=== PATIENT | male | born 1975 | race Caucasian/White ===

== ENCOUNTER 2025-01-06 11:06 | Outpatient (CLI) | payer OTHER, SELFPAY ==
--- OUTSIDE RECORDS SUMMARY | 2025-01-06 12:06 | XMS_ITS ---
Author Organization [facility] Address [address] [facility] [address] [place] [address] Care Team Providers Care Entomology Teacher Name Role Phone Nader Miranda MD Primary Care Provider Ab Bernal MD, Rishi Vallejo [phone] REASON FOR VISIT med records Encounters Encounter Location Date Provider Diagnosis [facility] [address] [place] [address] 08/18/2023 Rishi Bernal MD PLAN OF TREATMENT No Information
--- OUTSIDE RECORDS SUMMARY | 2025-01-06 12:06 | XMS_ITS ---
Author Organization [facility] Address [address] [facility] [address], [place] [address] Care Team Providers Care Sidewalk Inspector Name Role Phone Nader Miranda MD Primary Care Provider Ab Bernal MD, Rishi Vallejo REASON FOR VISIT shoulder inj Encounters Encounter Location Date Provider Diagnosis [facility] [address] [place] [address] 07/30/2023 Rishi Bernal MD PLAN OF TREATMENT No Information
--- OUTSIDE RECORDS SUMMARY | 2025-01-06 12:06 | XMS_ITS | CONTINUITY OF CARE DOCUMENT ---
Author Name phani phani Address Unknown Organization [facility] Address [address] [place] [address] Phone [phone] Care Team Providers Care Enterprise Architect Manager Name Role Phone Rahat Alonzo MD Unavailable [phone] AMI WHALEN MD Unavailable [phone] AMI WHALEN MD Unavailable [phone] INSURANCE PROVIDERS Payer name Policy type / Coverage type [place] red democrat ID [facility] [id number] Other [id number] [facility] [id number]
--- OUTSIDE RECORDS SUMMARY | 2025-01-06 12:06 | XMS_ITS | Clinical Summary ---
Author Organization [facility] Address [address] [place] [address] Care Team Providers Care Laborer Electroplating Name Role Phone Nader Miranda MD Primary Care Provider Allergies No known active allergies Medications rosuvastatin (CRESTOR) 10 mg tabletIndication s:hyperlipidemia Take 1 tablet (10 mg total) by mouth nightly 1 Active zunlrykn-stcf-qe n-folic acid 18-0.4 mg tabletIndication s:Vitamin Deficiency Prevention Take 1 tablet by mouth nightly Active ascorbic acid, vitamin C, (Vitamin C) 125 mg tablet,chewable Take by mouth nightly Active Lactobacillus acidophilus (PROBIOTIC ACIDOPHILUS ORAL) Take by mouth nightly Active melatonin 10 mg tablet Take 1 tablet (10 mg total) by mouth nightly as needed Active inulin (FIBER GUMMIES ORAL) Take by mouth as needed Active fluticasone propionate (FLONASE) 50 mcg/actuation nasal spray Administer 1 spray into each nostril as needed for rhinitis Active cetirizine (ZyrTEC) 10 mg tablet Take 1 tablet (10 mg total) by mouth as needed for allergies Active ergocalciferol (VITAMIN D) 50,000 unit capsuleIndicatio ns:Vitamin D Deficiency Take 1 capsule (50,000 Units total) by mouth once a week TAKE 1 CAPSULE ONCE A WEEK FOR 12 WEEKS, THEN FOLLOW UP WITH YOUR PCP. 12 capsule 4 Active Active Problems Problem Noted Date Diagnosed Date Osteoarthritis of left hip, unspecified osteoart hritis type 09/27/2024 Primary osteoarthritis of left hip 08/22/2024 Disorder of prostate 05/11/2024 Dyspnea 01/14/2024 Gastroesophageal reflux disease 01/14/2024 Headache 01/14/2024 Lateral epicondylitis 01/14/2024 Pain in elbow 01/14/2024 Verruca plantaris 01/14/2024 Anterior to posterior tear o f superior glenoid labrum of right shoulder 10/06/2023 Subacromial impingement of right shoulder 2022 Biceps tendinitis of right upper extremity 09/24 Lesion of skin of face 04/08/2023 Pain in both feet 04/08/2023 Transient hypertension 04/08/2023 Medial epicondylitis 04/02/2022 COVID-19 12/18/2021 Hyperlipidemia 04/08/2021 Surgical follow-up care 11/13/2016 Encounters Date Type Department Care Team Description 01/03/2025 Orders Only [facility] [address] [place] [address] [place] [phone] Bora Chao MD Orthopedic aftercare (Primary Dx) 11/22/2024 Orders Only [facility] [address] [place] [address] 4 [address] [place] [phone] Bora Chao MD Left hip pain (Primary Dx) 11/21/2024 7:50 AM DIRECTOR OF REGULATORY AFFAIRS Telemedicine [facility] [address] [place] [address] 4 [address] [place] [phone] Bora Chao MD Follow-up examination following surgery (Primary Dx) 11/15/2024 12:34 PM DIRECTOR OF REGULATORY AFFAIRS - 11/15/2024 11:59 PM DIRECTOR OF REGULATORY AFFAIRS Hospital Encounter [facility] [address] [place] [address] Bora Chao MD Orthopedic aftercare Discharge Disposition: Discharge to home or self care 11/10/2024 Orders Only [facility] Bora Chao MD Right hip pain 11/01/2024 Orders Only [facility] [address] [place] [address] 4 [address] [place] [phone] Bora Chao MD Orthopedic aftercare (Primary Dx) 10/13/2024 Orders Only [facility] [address] [facility] [address] [place] [address] Bora Chao MD Right hip pain (Primary Dx) 10/13/2024 Orders Only [facility] [address] [facility] [address] [place] [address] Bora Chao MD from Last 3 Months Immunizations Immunization Administration Dates Next Due Sars-CoV-2, Unspecified 01/30/2021,01/03/2021 Surgical History Surgery Date Site/Laterality Comments SHOULDER ARTHROSCOPY W/ ROTATOR CUFF REPAIR 10/26/2019 - 10/25/2020 Right DEBRIDEMENT TENNIS ELBOW 10/26/2019 - 10/25/2020 Right golfer and tennis HIP SURGERY 10/26/2007 - 10/25/2008 Right reconstruction FLUORO GUIDED ASPIRATION OR INJECTION LARGE JOINT LEFT 04/01/2023 Left ELBOW SURGERY 10/26/2021 - 10/25/2022 Right bone spur HIP HARDWARE REMOVAL 10/26/2008 - 10/25/2009 Right WISDOM TOOTH EXTRACTION 10/26/1991 - 10/25/1992 SINUS SURGERY 10/26/1995 - 10/25/1996 BICEPS TENDON REPAIR FLUORO GUIDED ASPIRATION OR INJECTION LARGE JOINT BILATERAL 01/26/2024 Bilateral SHOULDER SURGERY FLUORO GUIDED ASPIRATION OR INJECTION LARGE JOINT BILATERAL 06/14/2024 Bilateral FLUORO GUIDED ASPIRATION OR INJECTION LARGE JOINT RIGHT 10/31/2024 Right Medical History Medical History Date Comments Arthritis Gastric reflux Migraines Obesity Motion sickness PONV (postoperative nausea and vomiting) PONV and shakes - does well with pre-treatment Family History Medical History Relation Name Comments Alcohol abuse Father Family history of alcoholism - (Added by TW Conv) Mental illness Father FH: mental il lness - (Added by TW Conv) Cancer Maternal Grandmother Family history of malignant neoplasm - (Added by TW Conv) Bleeding Disorder Paternal Grandmother Janna anand history of coagulation disorder - (Added by TW Conv) Diabetes Paternal Grandmother Family history of diabetes mellitus - (Added by TW Conv) Anesthesia problems Neg Hx Relation Name Status Comments Father Maternal Grandmother Paternal Grandmother Social History Tobacco Use Types Packs/Day Years Used Date Smoking Tobacco: Never Smokeless Tobacco: Never Tobacco Cessation:Counseling Given: Not Answered AUDIT-C Answer Date Recorded Q1: How often do you have a drink containing alcohol? Never 09/27/2024 Q2: How many drinks containi ng alcohol do you have on a typical day when you are drinking? Patient does not drink Q3: How often do you have si x or more drinks on one occasion? Never 09/27/2024 Personal Safety Answer Date Recorded Have you ever been in or are you currently in a harmful physical or emotional relationship or is someone making you feel afraid or unsafe? Denies 09/27/2024 Sex and Gender Information Value Date Recorded Sex Assigned at Not on file Legal Sex Male 6:03 AM DIRECTOR OF REGULATORY AFFAIRS Gender Identity Not on file Sexual Orientation Not on file Obstetrics History Last Filed Vital Signs Vital Sign Reading Time Taken Comments Blood Pressure 123/78 09/27/2024 5:35 PM DIRECTOR OF REGULATORY AFFAIRS Pulse 67 09/27/2024 5:35 PM DIRECTOR OF REGULATORY AFFAIRS Temperature 36.1 C (97 F) 09/27/2024 1:45 PM DIRECTOR OF REGULATORY AFFAIRS Respiratory Rate 16 09/27/2024 5:35 PM DIRECTOR OF REGULATORY AFFAIRS Oxygen Saturation 98% 09/27/2024 5:35 PM DIRECTOR OF REGULATORY AFFAIRS Inhaled Oxygen Concentration - - Weight 83.9 kg (185 lb) 09/27/2024 9:55 AM DIRECTOR OF REGULATORY AFFAIRS Height 177.8 cm (5' 10 ) 09/27/2024 9:55 AM DIRECTOR OF REGULATORY AFFAIRS Body Mass Index 26.54 09/27/2024 9:55 AM DIRECTOR OF REGULATORY AFFAIRS Plan of Treatment Health Maintenance Due Date Last Done Comments Colon Cancer Screening-Colonoscopy 1974 Depression Screening 1974 Hepatitis C Screening 1974 Prostate Cancer Screening-PSA 1974 DTaP/Tdap/Td Vaccine (1 - Tdap) 1985 Hepatitis B Screening 1992 Regular Well Visit/Exam 18-64 1992 Zoster Vaccine (1 of 2) 2024 Covid-19 Vaccine ( season) 2024 01/30/2021, 01/29/2021, 01/03/2021, Additional history exists Influenza Vaccine (#1) 2024 Pneumococcal vaccine <65 Aged Out No longer eligible based on patient's age to complete this topic Medical Devices Implanted Type Area Community Program Assistant Device Identifier Shelf Expiration Date Model / Serial / Lot [employer] System Biceps Inlet Slotted Drill Guide 1.9mm Drill Fibertak Ar-3670 - [id number] Implanted:Qty: 1 on 10/09/2023 by Richi Lopez MD at [facility] Right: Humerus [employer] [id number] 08/25/2028 AR-3670 / / [id number] [employer] Cup Empowr Acet System Hemispherical Cluster Hole 52mm 940-02-52f - [id number] Implanted:Qty: 1 on 09/27/2024 at [facility] Left: Hip [employer] 11/27/2029 940-02-52 F / / [id number] [employer] Screw Empowr Acetabular Bone 35mm 940-00-035 - [id number] Implanted:Qty: 1 on 09/27/2024 at [facility] Left: Hip [employer] 08/18/2030 940-00-03 5 / / [id number] [employer] Liner Empowr Acetabular System Neutral Hxe 36f 941-01-36f - [id number] Implanted:Qty: 1 on 09/27/2024 at [facility] Left: Hip [employer] 04/08/2029 941-01-36 F / / [id number] [employer] Stem Femoral Hip Porous Collared Titanium Standard Offset Size 11 G395-52-0218 - [id number] Implanted:Qty: 1 on 09/27/2024 at [facility] Left: Hip [employer] 01/24/2029 Y242-61-2 102 / / [id number] [employer] 36mm Hip Neutral Head Femoral Biolox Delta Fmp System 400-03-362 - [id number] Implanted:Qty: 1 on 09/27/2024 at [facility] Left: Hip [employer] 08/01/2029 400-03-36 2 / / [id number] Procedures Procedure Name Priority Date/Time Associated Diagnosis Comments XR HIP LEFT W PELVIS 2 OR 3 VIEWS Schedule Routine, Read Routine (OP Routine) 11/15/2024 12:53 PM DIRECTOR OF REGULATORY AFFAIRS Orthopedic aftercare FLUORO GUIDED ASPIRATION OR INJECTION LARGE JOINT RIGHT Schedule Routine, Read Routine (OP Routine) 10/31/2024 4:18 PM DIRECTOR OF REGULATORY AFFAIRS Right hip pain from Last 3 Months Results * XR Hip Left 2 or 3 Views W Pelvis (11/15/2024 12:53 PM DIRECTOR OF REGULATORY AFFAIRS) Anatomical Region Laterality Modality Lower Extremities, Hip, Pelvis Left C omputed Radiography 11/15/2024 1:04 PM DIRECTOR OF REGULATORY AFFAIRS Impressions 11/15/2024 1:04 PM DIRECTOR OF REGULATORY AFFAIRS Left total hip arthroplasty in near-anatomic position. Electronically signed by: Deshaun Rae M.D. Narrative 11/15/2024 1:04 PM DIRECTOR OF REGULATORY AFFAIRS EXAMINATION: XR HIP LEFT 2 OR 3 VIEWS W PELVIS HISTORY: Left hip pain FINDINGS: 2 views of the left hip and pelvis were performed with comparison made to 05/16/2024. There is a left total hip arthroplasty in near-anatomic position. There is no periprosthetic lucency or fracture. Prior right hip labral repair and moderate right hip osteoarthritis is noted. There is no acute fracture. Procedure Note Deshaun Rae MD PhD - 11/15/2024 EXAMINATION: XR HIP LEFT 2 OR 3 VIEWS W PELVIS HISTORY: Left hip pain FINDINGS: 2 views of the left hip and pelvis were performed with comparison made to 05/16/2024. There is a left total hip arthroplasty in near-anatomic position. There is no periprosthetic lucency or fracture. Prior right hip labral repair and moderate right hip osteoarthritis is noted. There is no acute fracture. IMPRESSION: Left total hip arthroplasty in near-anatomic position. Electronically signed by: Deshaun Rae M.D. Bora RIVAS XR PROCEDURES Final Resul t * FL Fluoro Guided Aspiration or Injection Large Joint Right (10/31/2024 4:18 PM DIRECTOR OF REGULATORY AFFAIRS) Anatomical Region Laterality Modality Body Right Radiographic Kelli ging Bora RIVAS FLUOROSCOPY PROCEDURES Fi nal Result from Last 3 Months Insurance [facility] [employer] PL[employer] CHOICE PLUS [facility] [employer] PLUS [facility] [employer] PLUS Member Subscriber Plan / Payer (Ef fective 2020-Present) Name:Aaron Taylor Relation to Subscriber:Spouse Name:MELVIN TAYLOR Date of :1975 (Home) Address: [address] [place] [address] Payer ID:[id number] (NAIC) Type:[employer] HMO/PPO Address: [address] CHOICE PLUS Care Teams Laborer Electroplating Relationship Specialty Start Date End Date Nader Miranda MD [address] [place] [address] PCP - General Internal Medicine 03/09/23
--- OUTSIDE RECORDS SUMMARY | 2025-01-06 12:06 | XMS_ITS | Referral Summary ---
Author Organization [facility] Address [address] [place] [address] Care Team Providers Care Pediatric Immunologist Name Role Phone Nader Miranda MD Primary Care Provider Encounters Date Type Department Care Team Description 01/03/2025 Orders Only [facility] [address] [place] [address] [address] [place] [phone] Bora Chao MD Orthopedic aftercare (Primary Dx) 11/22/2024 Orders Only [facility] [address] [place] [address] [address] [place] [phone] Bora Chao MD Left hip pain (Primary Dx) 11/21/2024 7:50 AM HOTEL CONCIERGE Telemedicine [facility] [address] [place] [address] [address] [place] [phone] Bora Chao MD Follow-up examination following surgery (Primary Dx) 11/15/2024 12:34 PM HOTEL CONCIERGE - 11/15/2024 11:59 PM HOTEL CONCIERGE Hospital Encounter [facility] [address] [place] [address] Bora Chao MD Orthopedic aftercare Discharge Disposition: Discharge to home or self care 11/10/2024 Orders Only [facility] Bora Chao MD Right hip pain 11/01/2024 Orders Only [facility] [address] [place] [address] 4 [address] [place] [address] Bora Chao MD Orthopedic aftercare (Primary Dx) 10/13/2024 Orders Only [facility] [address] [facility] [address] [place] [phone] Bora Chao MD Right hip pain (Primary Dx) 10/13/2024 Orders Only [facility] [address] [facility] [address] [place] [phone] Bora Chao MD from Last 3 Months Allergies No known active allergies Medications rosuvastatin (CRESTOR) 10 mg tabletIndication s:hyperlipidemia Take 1 tablet (10 mg total) by mouth nightly 1 Active wykjzxvh-rzcf-as n-folic acid 18-0.4 mg tabletIndication s:Vitamin Deficiency [...] 12/18/2021 Hyperlipidemia 04/08/2021 Surgical follow-up care 11/13/2016 Immunizations Immunization Administration Dates Next Due Sars-CoV-2, Unspecified 01/30/2021,01/03/2021 Social History Tobacco Use Types Packs/Day Years [...] on file Legal Sex Male 6:03 AM HOTEL CONCIERGE Gender Identity Not on file Sexual Orientation Not on file Last Filed Vital Signs Vital Sign Reading Time Taken Comments Blood Pressure 123/78 09/27/2024 5:35 PM HOTEL CONCIERGE Pulse 67 09/27/2024 5:35 PM HOTEL CONCIERGE Temperature 36.1 C (97 F) 09/27/2024 1:45 PM HOTEL CONCIERGE Respiratory Rate 16 09/27/2024 5:35 PM HOTEL CONCIERGE Oxygen Saturation 98% 09/27/2024 5:35 PM HOTEL CONCIERGE Inhaled Oxygen Concentration - - Weight 83.9 kg (185 lb) 09/27/2024 9:55 AM HOTEL CONCIERGE Height 177.8 cm (5' 10 ) 09/27/2024 9:55 AM HOTEL CONCIERGE Body Mass Index 26.54 09/27/2024 9:55 AM HOTEL CONCIERGE Plan of Treatment Not on file Medical Devices Implanted Type Area Stove Refinisher Device Identifier Shelf Expiration Date Model / Serial / Lot [employer] System Biceps [employer] Slotted Drill Guide 1.9mm Drill [employer]ak Ar-3670 - [id number] Implanted:Qty: 1 on 10/09/2023 by Richi Lopez MD at [facility] Right: Humerus [employer] [id number] 08/25/2028 AR-3670 / / [id number] [employer] Cup Empowr Acet System Hemispherical Cluster Hole 52mm 940--52f - [id number] Implanted:Qty: 1 on 09/27/2024 at [facility] Left: Hip [employer] 11/27/2029 940-02-52 F / / [id number] [employer] Screw Empowr Acetabular Bone 35mm 940-00-035 - [id number] Implanted:Qty: 1 on 09/27/2024 at [facility] Left: Hip [employer] 08/18/2030 940-00-03 5 / / [id number] [employer] Liner Empowr Acetabular System Neutral Hxe 36f 941-01-36f - [id number] Implanted:Qty: 1 on 09/27/2024 at [facility] Left: Hip [employer] 04/08/2029 941-01-36 F / / [id number] [employer] Stem Femoral Hip Porous Collared Titanium Standard Offset Size 11 V957-09-1669 - [id number] Implanted:Qty: 1 on 09/27/2024 at [facility] Left: Hip [employer] 01/24/2029 K827-38-2 102 / / [id number] [employer] 36mm Hip Neutral Head Femoral Biolox Delta Fmp System 400-03-362 - [id number] Implanted:Qty: 1 on 09/27/2024 at [facility] Left: Hip [employer] 08/01/2029 400-03-36 2 / / [id number] Procedures Procedure Name Priority Date/Time Associated Diagnosis Comments XR HIP LEFT W PELVIS 2 OR 3 VIEWS Schedule Routine, Read Routine (OP Routine) 11/15/2024 12:53 PM HOTEL CONCIERGE Orthopedic aftercare FLUORO GUIDED ASPIRATION OR INJECTION LARGE JOINT RIGHT Schedule Routine, Read Routine (OP Routine) 10/31/2024 4:18 PM HOTEL CONCIERGE Right hip pain from Last 3 Months Results * XR Hip Left 2 or 3 Views W Pelvis (11/15/2024 12:53 PM HOTEL CONCIERGE) Anatomical Region Laterality Modality Lower Extremities, Hip, Pelvis Left C omputed Radiography 11/15/2024 1:04 PM HOTEL CONCIERGE Impressions 11/15/2024 1:04 PM HOTEL CONCIERGE Left total hip arthroplasty in near-anatomic position. Electronically signed by: Deshaun Rae M.D. Narrative 11/15/2024 1:04 PM HOTEL CONCIERGE EXAMINATION: XR HIP LEFT 2 OR 3 [...] Injection Large Joint Right (10/31/2024 4:18 PM HOTEL CONCIERGE) Anatomical Region Laterality Modality Body Right Radiographic Kelli ging Bora RIVAS FLUOROSCOPY PROCEDURES Fi nal Result from Last 3 Months Insurance [facility] CHOICE PLUS [facility] H[facility]/PPO Address: [address] [place] [address] CHOICE PLUS [facility] H[facility]/PPO Address: [address] [place] [address] [facility] CHOICE PLUS [facility] H[facility]/PPO Address: [address] [place] [address] [facility] CHOICE PLUS [facility] H[facility]/PPO Address: [address] CHOICE PLUS [facility] H[facility]/PPO Address: [address] [place] [address] Care Teams Pediatric Immunologist Relationship Specialty Start Date End Date Nader Miranda MD [address] [place] [address] PCP - General Internal Medicine 03/09/23
--- OUTSIDE RECORDS SUMMARY | 2025-01-06 12:06 | XMS_ITS | Clinical Summary ---
Author Organization [facility] Address [address] [facility] Attn: Epic Prelude ADT CRIST[place]IG[place]AL[place] [address] Care Team Providers Care Case Management Coordinator Name Role Phone Unavailable Primary Care Provider Unavailabl e Social History Tobacco Use Types Packs/Day Years Used Date Smoking Tobacco: Never Assessed Sex and Gender Information Value Date Recorded Sex Assigned at Not on file Legal Sex Male 5:41 AM SHOE PLANNER Gender Identity Not on file Sexual Orientation Not on file Plan of Treatment Health Maintenance Due Date Last Done Comments DTAP/TDAP/TD VACCINES (1 - Tdap) 1993 HEPATITIS B VACCINES (1 of 3 - 19+ 3-dose series) 02/23 COLORECTAL SCREENING 2019 Colorectal Cancer Screening 2019 FIT-DNA Q 3 years 2019 FIT/FOBT Q 1 year 2019 Flex Sig/CT Colonography Q 5 years 2019 ZOSTER VACCINE (1 of 2) 2024 INFLUENZA VACCINE (#1) 2024
--- OUTSIDE RECORDS SUMMARY | 2025-01-06 12:06 | XMS_ITS | Patient Health Record ---
Author Organization [facility] Address [address] [place] [address] Care Team Providers Care Glassworker Name Role Phone Nader Miranda MD Primary Care Provider Ab Bernal MD, Rishi Unavailable [phone] ALLERGIES No Known Allergies REASON FOR REFERRAL No Information MEDICATIONS Medication SIG (Take, Route, Frequency, Duration) Notes Start Date End Date Status Diclofenac Active Rosuvastatin Calcium Active Dyclonine HCl Not-Ta isidro Meloxicam 15 MG 1 tablet Orally Once a day for 30 day(s) 05/29/2020 Not-Taking Cephalexin 500 MG 1 capsule Orally TID for 7 days 02/24/2022 Not-Taking IMMUNIZATIONS Vaccine Route Administration Date Status Comme nts Influenza Unknown 12/30/2019 Refused pneumoccocal Unknown 12/30/2019 Refused Influenza Unknown 01/31/2021 Refused pneumoccocal Unknown 01/31/2021 Refused pneumoccocal Unknown 02/12/2022 Refused Influenza Unknown 02/12/2022 Refused SOCIAL HISTORY Tobacco Use: Social History Observation Description Date Details (start date - stop date) Never Smoker NA - NA Sex Assigned At : Social History Observation Description Sex Assigned At Unknown Tobacco Use: Question Answer Notes Patient is a: nonsmoker Alcohol screening: Question Answer Notes Did you have a drink containing alcohol in the p ast year? No Points 0 Interpretation Negative PROBLEMS Problem Type ICD Code Onset Dates Problem Status W/U Status Risk SNOMED Code Notes Problem Impingement syndrome of right shoulder (M75.41) Active confirmed 085482770215117 Problem Primary osteoarthritis, right shoulder (M19.011) Active confirmed 894939527906217 Problem Lateral epicondylitis, right elbow (M77.11) Active confirmed 863078237107783 Problem Medial epicondylitis, right elbow (M77.01) Active confirmed 961990007756064 Problem Other articular cartilage disorders, right shoulder (M24.111) Active confirmed 056617205 Problem Encounter for other orthopedic aftercare (Z47.89) Active confirmed 947441457 Problem Strain of muscle, fascia and tendon of triceps, right arm, initial encounter (S46.311A) 07/21/20 21 Active confirmed Problem Other and unspecified overexertion or strenuous movements or postures, initial encounter (X50.9XXA) 07/21/20 21 Active confirmed Problem Tennis (Y93.73) 07/21/20 21 Active confirmed Tennis (42869209) Problem Osteophyte, right elbow (M25.721) 07/21/20 21 Active confirmed Enthesopathy of elbow region (03074366) Problem Displaced fracture of olecranon process without intraarticular extension of right ulna, subsequent encounter for closed fracture with routine healing (S52.021D) Active confirmed 589166901 Problem Olecranon bursitis, right elbow (M70.21) 07/21/20 21 Active confirmed Inflammation of bursa of olecranon (207365085) PLAN OF TREATMENT Pending Test Test Name Order Date MRI : Shoulder, right 04/12/2020 MRI : Shoulder, right 05/23/2022 MRI : Elbow, right 04/23/2020 MRI : Elbow, right 09/18/2021 Intraarticular Injection of Right [place] umeral Joint 03/09/2023 Intraarticular Injection of Right [place] umeral Joint 07/30/2023 Intraarticular Injection of Right [place] umeral Joint 06/02/2022 Insurance Providers Payer Name Payer Address Payer Phone Subscriber Number Group Number Insured Name Patient Relationship to Insured Coverage Start Date Coverage End Date [facility] [address] [place] [address] [phone] [id number] Aaron Shields Self - patient is the insured [facility] [address] [address] [place] [address] [phone] [id number] Jeimy Shields Spouse - patient is the spouse of the insured MEDICAL (GENERAL) HISTORY Medical History History ICD Code HLD Surgical History Surgery Date(Month/Year) Hip reconstruction 06/2007 Sinus surgery 01/1998 right shoulder scope (ACS) 06/20/2020 right elbow tennis/golfer's elbow releas e (ACS) 09/05/2020 Right elbow olecranon spur, bursa excisi on (ACS) 01/29/22
--- OUTSIDE RECORDS SUMMARY | 2025-01-06 12:06 | XMS_ITS | Data Portability ---
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 Plan of Treatment Reminders Order Date Submit Date Provider Last Modified By Organization Details Last Modified Time Details Appointments None recorded . Lab PSA, serum or plasma 024 05/11/20 24 [email or web address] [facility], [address] [place], [address], 4 14:11:39 lipid panel, serum 024 05/11/20 24 [facility], [address] [place], [address], 4 14:49:59 CMP, serum or plasma 024 05/11/20 24 [facility], [address] [place], [address], 4 14:50:06 CBC w/ auto diff 024 05/11/20 24 [facility], [address] [place], [address], 4 14:29:39 PSA, serum or plasma 023 04/08/20 23 [email or web address] [facility], [address] [place], [address], 3 12:02:01 CMP, serum or plasma 023 04/08/20 [facility], [address] [place], [address], 12:51:23 CBC w/ auto diff 023 04/08/20 [facility], [address] [place], [address], 12:42:34 lipid panel, serum 023 04/08/20 [facility], [address] [place], [address], 12:51:27 T4, free, serum 023 04/08/20 [facility], [address] [place], [address], 12:56:40 TSH, serum or plasma 023 04/08/20 [facility], [address] [place], [address], 13:07:49 Referral None recorded . Procedures None recorded . Surgeries None recorded . Imaging None recorded . Medication Orders None recorded . Patient TargetsNo targets recorded. Patient Instructions Encounter Date Encounter Id Patient Instructions Last Modified By Organization Details Last Modified Time 04/08/2023 [id number] risk assessment* Not availabl e 04/08/2023 11:14:51 INFLUENZA VACCIN E Recommended today, but patient declined Ordered Rochelle ent will get at local pharmacy/health department TD/TDAP Recommended today, patient declined Ordered Rochelle ent will get at local pharmacy/health department PNEUMONIA VACCINE Ordered Recommended today, patient declined Patient will get at local pharmacy/health department Recommende d at age 64 SHINGLES Not indicated PSA Ordered No screening necessary patient is up to date COLORECTAL SCREENING No screening necessary patient is up to date DEPRESSION SCREENING Negative BMI Overweight Appropriat e NUTRITION PHYSICAL ACTIVITY Need more exercise/physical activity ALCOHOL USE No alcohol use TOBACCO USE non smoker LUNG CANCER SCREENING Non Smoker-not indicated SEXUALLY ACTIVE HEPATITIS C SCREENING Not indicated GLUCOSE SCREENING LIPID SCREENING [email or web address] Not available 04/08/2023 10:59:18 Wellness evaluat ion risk assessment stable. Follow-up for transient hypertension- bilateral foot pain- lesion as outlined above. Will check blood work in the form of CBC, CMP, lipid, thyroid and PSA. Set up with Dermatology for the skin lesion. Instructed to drop by in week or 10 days have blood pressure recheck in check as an outpatient unless no overt raises again. May need further evaluation pending irregularity the elevation. Dermatology consult Not available 04/08/2023 11:13:39 10/07/2023 [id number] Surgical clearan ce for right shoulder surgery. No major cardiovascular complaints. Is doing well otherwise. Is taking his cholesterol medicine is under good control. See no contraindications of surgical intervention. Recheck back in six months Portions of the record may have been created with voice recognition software. Occasional wrong-word or s ound-a-like substitutions may have occurred due to the inherent limitations of voice recognition software. Read the chart carefully and recognize, using context, where substitutions have occurred. [email or web address] Not available 10/07/2023 11:16:56 05/11/2024 [id number] risk assessment* [email or web address] Not availabl e 05/11/2024 10:54:55 INFLUENZA VACCIN E TD/TDAP Recommended today, patient declined Ordered Rochelle ent will get at local pharmacy/health department PNEUMONIA VACCINE Ordered Recommended today, patient declined Patient will get at local pharmacy/health department Recommende d at age 64 SHINGLES Ordered Recommended today, patient declined Patient will get at local pharmacy/health department PSA COLORECTAL SCREENING No screening necessary patient is up to date DEPRESSION SCREENING Negative BMI Overweight Appropriat e NUTRITION PHYSICAL ACTIVITY Need more exercise/physical activity ALCOHOL USE No alcohol use TOBACCO USE non smoker LUNG CANCER SCREENING Non Smoker-not indicated SEXUALLY ACTIVE HEPATITIS C SCREENING Not indicated GLUCOSE SCREENING LIPID SCREENING [email or web address] Not available 05/11/2024 10:39:27 Wellness evaluat ion and risk assessment stable. Follow-up for hyperlipidemia currently doing well. Will currently is on rosuvastatin tolerating medications without difficulty last cholesterol was 140 with HDL of 55 LDL 73. Will continue on his current medications check blood work in the form of CBC, CMP lipid and PSA. Continue on current Rx follow-up In one year. Next Appointment: 1 Year Approximate Date: 05/11/2025 Portions of the record may have been created with voice recognition software. Occasional wrong-word or s ound-a-like substitutions may have occurred due to the inherent limitations of voice recognition software. Read the chart carefully and recognize, using context, where substitutions have occurred. Not available 05/11/2024 10:54:42 Reason for Referral None Reported. Results Created Date Observation Date Name Description Value Unit Range Abnormal Flag Note LastModifiedBy Organization Detail LastModifiedTime 03/20/2003/20/2021 lipid panel , serum cholesterol 219 mg/dL 140-19 9 high NIH DANNY NSUS RECOM MENDA TION FOR MYCHAL STERO L: ADULT CHILD LOW RISK: <200 <170 BORDE RLINE : <200- 239 ----- HIGH RISK: >240 >200 Not Available [facility] (Lab) [address] [place], [address], 03/20/2021 17:28:56 03/20/2003/20/2021 lipid panel , serum triglyceride s 178 mg/dL 0-150 high NIH DANNY NSUS REPOR T RECOM MENDA TION FOR TRIGL YCERI LIDIA: ADULT CHILD LOW RISK: <150 ----- BODER LINE: 150-1 99 ----- HIGH RISK: >200 ----- Not Available [facility] (Lab) [address] [place], [address], 03/20/2021 17:28:56 03/20/2003/20/2021 lipid panel , serum HDL cholesterol 35 mg/dL 40- low Not Available [facility] (Lab) [address] [place], [address], 03/20/2021 17:28:56 03/20/2003/20/2021 lipid panel , serum LDL cholesterol, calculated 148 mg/dL 0-130 high NIH DANNY NSUS REPOR T RECOM MENDA TIONS FOR LDL: ADULT CHILD LOW RISK <130 <110 (OPTI MAL LDL) <100 ----- BORDE RLINE : 130-1 59 ----- HIGH RISK: >160 >130 A TRIGL YCERI DE RESUL T >400 INVAL IDATE S THE CALCU LATIO N FOR LDL FRACT IONAT ION - THE LDL RESUL T WILL NOT BE REPOR DIAMOND. Not Available [facility] (Lab) [address] [place], [address], 03/20/2021 17:28:56 03/20/20 21 03/24/2021 testo stero ne, free + total , serum testosterone , total, lc/MS 321.9 NG/dL 264.0- 916.0 This [facility] LC/MS -MS metho d is curre ntly certi fied by the [facility] Hormo ne Stand ardiz ation Progr am (HoSt ). Adult male refer ence inter anayeli is based on a popul ation of healt hy nonob jennifer males (BMI <30) betwe en 19 and 39 years old. Sylwia jauregui, et.al . JCEM 2017, 102;1 161-1 173. PMID: 48514 103. Not Available [facility] (Lab) [address] [place], [address], 03/24/2021 11:07:37 03/20/20 21 03/24/2021 testo stero ne, free + total , serum testosterone , free 10.11 NG/dL 5.00-2 1.00 Not Available [facility] (Lab) [address] [place], [address], 03/24/2021 11:07:37 03/20/20 21 03/24/2021 testo stero ne, free + total , serum % free testosterone 3.14 % 1.50-4 .20 Perfo rmed at: [facility] - [facility] [place] [address] [facility] , [place] [address] Lab Direc tor: Roseann perez MD, Phone : [phone] Not Available [facility] (Lab) [address] [place], [address], 03/24/2021 11:07:37 03/20/20 21 03/20/2021 PSA, total , serum or plasm a PSA medicare screen 0.68 NG/mL 0.00-4 .00 Not Available [facility] (Lab) [address] [place], [address], 03/20/2021 18:07:22 03/20/20 21 03/20/2021 CMP, serum or plasm a carbon dioxide 30 mmol/ L 22-30 Not Available [facility] (Lab) [address] [place], [address], 03/20/2021 17:29:01 03/20/20 21 03/20/2021 CMP, serum or plasm a sodium 144 mmol/ L 137-14 5 Not Available [facility] (Lab) [address] [facility] [place], [address], 03/20/2021 17:29:01 03/20/20 21 03/20/2021 CMP, serum or plasm a potassium 3.9 mmol/ L 3.5-5. 1 Not Available [facility] (Lab) [address] [place], [address], 03/20/2021 17:29:01 03/20/20 21 03/20/2021 CMP, serum or plasm a chloride 107 mmol/ L 98-107 Not Available [facility] (Lab) [address] [place], [address], 03/20/2021 17:29:01 03/20/20 21 03/20/2021 CMP, serum or plasm a agap 10.9 mmol/ L 14-22 low Not Available [facility] (Lab) [address] [place], [address], 03/20/2021 17:29:01 03/20/20 21 03/20/2021 CMP, serum or plasm a glucose 96 mg/dL 70-99 Not Available [facility] (Lab) [address] [place], [address], 03/20/2021 17:29:01 03/20/20 21 03/20/2021 CMP, serum or plasm a BUN 14 mg/dL 8-19 Not Available [facility] (Lab) [address] [place], [address], 03/20/2021 17:29:01 03/20/20 21 03/20/2021 CMP, serum or plasm a creatinine 0.86 mg/dL 0.66-1 .25 Not Available [facility] (Lab) [address] [place], [address], 03/20/2021 17:29:01 03/20/20 21 03/20/2021 CMP, serum or plasm a aspartate aminotransfe rase 30 U/L 15-46 Not Available [facility] (Lab) [address] [place], [address], 03/20/2021 17:29:01 03/20/20 21 03/20/2021 CMP, serum or plasm a GFR >60 Refer ence Range : [place] ge GFR Healt hy Adult : >60 mL/mi n/1.7 3 m2 Chron ic Kidne y Disea se: 15-60 mL/mi n/1.7 3 m2 Kidne y Failu re: <15/m L/min /1.73 m2 www.n iddk. nih.g ov MDRD study equat ion hasn' t been valid ated in child bradford <18 yrs of age, pregn ant women , the elder ly >85 yrs of age, or in some racia l or ethni c subgr oups, suc as Hispa nics. Outsi de the valid ated valeriano eters , estim ated GFR is less accur ate requi ring clini kevin judgm ent on a case by case basis . Clini kevin inter preta tion for other races and ages must be made by the clini zacarias . Futhe rmore , any of th e limit ation s with the use of serum creat inine relat ed to nutri ervin l statu s o r medic ation usage hasn' t accou nted for the MDRD Study equat ion. For perso ns < 18 yrs of age, a pedia tric GFR calcu lator can be locat ed on the [facility] websi te: https :[email or web address] romero.jelena josé.o rosana/candis funkess ional s/kdo qi/gf r_cal culat or Not Available [facility] (Lab) [address] [place], [address], 03/20/2021 17:29:01 03/20/20 21 03/20/2021 CMP, serum or plasm a alkaline phosphatase 82 U/L 38-126 Not Available [facility] (Lab) [address] [place], [address], 03/20/2021 17:29:01 03/20/20 21 03/20/2021 CMP, serum or plasm a alanine aminotransfe rase 41 U/L 0-50 Not Available [facility] (Lab) [address] [place], [address], 03/20/2021 17:29:01 03/20/20 21 03/20/2021 CMP, serum or plasm a bilirubin, total 0.70 mg/dL 0.20-1 .30 Not Available [facility] (Lab) [address] [place], [address], 03/20/2021 17:29:01 03/20/20 21 03/20/2021 CMP, serum or plasm a calcium 9.3 mg/dL 8.4-10 .2 Not Available [facility] (Lab) [address] [place], [address], 03/20/2021 17:29:01 03/20/20 21 03/20/2021 CMP, serum or plasm a total protein 7.9 g/dL 6.3-8. 2 Not Available [facility] (Lab) [address] [place], [address], 03/20/2021 17:29:01 03/20/20 21 03/20/2021 CMP, serum or plasm a albumin 4.6 g/dL 3.4-5. 0 Not Available [facility] (Lab) [address] [place], [address], 03/20/2021 17:29:01 03/20/20 21 03/20/2021 CMP, serum or plasm a globulin 3.3 g/dL 2.6-4. 2 Not Available [facility] (Lab) [address] [place], [address], 03/20/2021 17:29:01 03/20/20 21 03/20/2021 CMP, serum or plasm a A/G ratio 1.4 ratio 1.0-2. 0 Not Available [facility] (Lab) [address] [place], [address], 03/20/2021 17:29:01 06/04/20 21 06/04/2021 COMPR EHENS BRYNN METAB OLIC PANEL carbon dioxide 26 mmol/ L 22-30 Not Available [facility] (Lab) [address] [place], [address], 06/04/2021 12:19:22 06/04/20 21 06/04/2021 COMPR EHENS BRYNN METAB OLIC PANEL sodium 142 mmol/ L 137-14 5 Not Available [facility] (Lab) [address] [place], [address], 06/04/2021 12:19:22 06/04/20 21 06/04/2021 COMPR EHENS BRYNN METAB OLIC PANEL potassium 4.1 mmol/ L 3.5-5. 1 Not Available [facility] (Lab) [address] [place], [address], 06/04/2021 12:19:22 06/04/20 21 06/04/2021 COMPR EHENS BRYNN METAB OLIC PANEL chloride 107 mmol/ L 98-107 Not Available [facility] (Lab) [address] [place], [address], 06/04/2021 12:19:22 06/04/20 21 06/04/2021 COMPR EHENS BRYNN METAB OLIC PANEL agap 13.1 mmol/ L 14-22 low Not Available [facility] (Lab) [address] [place], [address], 06/04/2021 12:19:22 06/04/20 21 06/04/2021 COMPR EHENS BRYNN METAB OLIC PANEL glucose 95 mg/dL 70-99 Not Available [facility] (Lab) [address] [place], [address], 06/04/2021 12:19:22 06/04/20 21 06/04/2021 COMPR EHENS BRYNN METAB OLIC PANEL BUN 18 mg/dL 8-19 Not Available [facility] (Lab) [address] [place], [address], 06/04/2021 12:19:22 06/04/20 21 06/04/2021 COMPR EHENS BRYNN METAB OLIC PANEL creatinine 0.91 mg/dL 0.66-1 .25 Not Available [facility] (Lab) [address] [place], [address], 06/04/2021 12:19:22 06/04/20 21 06/04/2021 COMPR EHENS BRYNN METAB OLIC PANEL GFR >60 Refer ence Range : [place] ge GFR Healt hy Adult : >60 mL/mi n/1.7 3 m2 Chron ic Kidne y Disea se: 15-60 mL/mi n/1.7 3 m2 Kidne y Failu re: <15/m L/min /1.73 m2 www.n iddk. nih.g ov MDRD study equat ion hasn' t been valid ated in child bradford <18 yrs of age, pregn ant women , the elder ly >85 yrs of age, or in some racia l or ethni c subgr oups, suc as Hispa nics. Outsi de the valid ated valeriano eters , estim ated GFR is less accur ate requi ring clini kevin judgm ent on a case by case basis . Clini kevin inter preta tion for other races and ages must be made by the clini zacarias . Futhe rmore , any of th e limit ation s with the use of serum creat inine relat ed to nutri ervin l statu s o r medic ation usage hasn' t accou nted for the MDRD Study equat ion. For perso ns < 18 yrs of age, a pedia tric GFR calcu lator can be locat ed on the [facility] websi te: https :[email or web address] w.jelena schulzy.o rg/pr ofess ional s/kdo qi/gf r_cal culat or Not Available [facility] (Lab) [address] [place], [address], 06/04/2021 12:19:22 06/04/20 21 06/04/2021 COMPR EHENS BRYNN METAB OLIC PANEL alkaline phosphatase 81 U/L 38-126 Not Available [facility] (Lab) [address] [place], [address], 06/04/2021 12:19:22 06/04/20 21 06/04/2021 COMPR EHENS BRYNN METAB OLIC PANEL alanine aminotransfe rase 32 U/L 0-50 Not Available [facility] (Lab) [address] [place], [address], 06/04/2021 12:19:22 06/04/20 21 06/04/2021 COMPR EHENS BRYNN METAB OLIC PANEL aspartate aminotransfe rase 31 U/L 15-46 Not Available [facility] (Lab) [address] [place], [address], 06/04/2021 12:19:22 06/04/20 21 06/04/2021 COMPR EHENS BRYNN METAB OLIC PANEL bilirubin, total 0.80 mg/dL 0.20-1 .30 Not Available [facility] (Lab) [address] [place], [address], 06/04/2021 12:19:22 06/04/20 21 06/04/2021 COMPR EHENS BRYNN METAB OLIC PANEL calcium 9.3 mg/dL 8.4-10 .2 Not Available [facility] (Lab) [address] [place], [address], 06/04/2021 12:19:22 06/04/20 21 06/04/2021 COMPR EHENS BRYNN METAB OLIC PANEL total protein 7.5 g/dL 6.3-8. 2 Not Available [facility] (Lab) [address] [place], [address], 06/04/2021 12:19:22 06/04/20 21 06/04/2021 COMPR EHENS BRYNN METAB OLIC PANEL albumin 4.5 g/dL 3.4-5. 0 Not Available [facility] (Lab) [address] [place], [address], 06/04/2021 12:19:22 06/04/20 21 06/04/2021 COMPR EHENS BRYNN METAB OLIC PANEL globulin 3.0 g/dL 2.6-4. 2 Not Available [facility] (Lab) [address] [place], [address], 06/04/2021 12:19:22 06/04/20 21 06/04/2021 COMPR EHENS BRYNN METAB OLIC PANEL A/G ratio 1.5 ratio 1.0-2. 0 Not Available [facility] (Lab) [address] [place], [address], 06/04/2021 12:19:22 06/04/20 21 06/04/2021 LIPID PANEL cholesterol 161 mg/dL 140-19 9 NIH DANNY NSUS RECOM MENDA TION FOR MYCHAL STERO L: ADULT CHILD LOW RISK: <200 <170 BORDE RLINE : <200- 239 ----- HIGH RISK: >240 >200 Not Available [facility] (Lab) [address] [place], [address], 06/04/2021 12:19:17 06/04/20 21 06/04/2021 LIPID PANEL triglyceride s 91 mg/dL 0-150 NIH DANNY NSUS REPOR T RECOM MENDA TION FOR TRIGL YCERI LIDIA: ADULT CHILD LOW RISK: <150 ----- BODER LINE: 150-1 99 ----- HIGH RISK: >200 ----- Not Available [facility] (Lab) [address] [place], [address], 06/04/2021 12:19:17 06/04/2006/04/2021 LIPID PANEL HDL cholesterol 48 mg/dL 40- Not Available [facility] (Lab) [address] [place], [address], 06/04/2021 12:19:17 06/04/2006/04/2021 LIPID PANEL LDL cholesterol, calculated 95 mg/dL 0-130 NIH DANNY NSUS REPOR T RECOM MENDA TIONS FOR LDL: ADULT CHILD LOW RISK <130 <110 (OPTI MAL LDL) <100 ----- BORDE RLINE : 130-1 59 ----- HIGH RISK: >160 >130 A TRIGL YCERI DE RESUL T >400 INVAL IDATE S THE CALCU LATIO N FOR LDL FRACT IONAT ION - THE LDL RESUL T WILL NOT BE REPOR DIAMOND. Not Available [facility] (Lab) [address] [place], [address], 06/04/2021 12:19:17 04/03/20 22 04/03/2022 COMPR EHENS BRYNN METAB OLIC PANEL chloride 105 mmol/ L 98-107 Not Available [facility] (Lab) [address] [place], [address], 04/03/2022 14:17:25 04/03/20 22 04/03/2022 COMPR EHENS BRYNN METAB OLIC PANEL sodium 143 mmol/ L 137-14 5 Not Available [facility] (Lab) [address] [place], [address], 04/03/2022 14:17:25 04/03/20 22 04/03/2022 COMPR EHENS BRYNN METAB OLIC PANEL potassium 3.9 mmol/ L 3.5-5. 1 Not Available [facility] (Lab) [address] [place], [address], 04/03/2022 14:17:25 04/03/20 22 04/03/2022 COMPR EHENS BRYNN METAB OLIC PANEL carbon dioxide 29 mmol/ L 22-30 Not Available [facility] (Lab) [address] [facility] [place], [address], 04/03/2022 14:17:25 04/03/20 22 04/03/2022 COMPR EHENS BRYNN METAB OLIC PANEL anion gap 12.9 mmol/ L 14-22 low Not Available [facility] (Lab) [address] [place], [address], 04/03/2022 14:17:25 04/03/20 22 04/03/2022 COMPR EHENS BRYNN METAB OLIC PANEL glucose 88 mg/dL 70-99 Not Available [facility] (Lab) [address] [place], [address], 04/03/2022 14:17:25 04/03/20 22 04/03/2022 COMPR EHENS BRYNN METAB OLIC PANEL BUN 12 mg/dL 8-19 Not Available [facility] (Lab) [address] [place], [address], 04/03/2022 14:17:25 04/03/20 22 04/03/2022 COMPR EHENS BRYNN METAB OLIC PANEL creatinine 0.94 mg/dL 0.66-1 .25 Not Available [facility] (Lab) [address] [place], [address], 04/03/2022 14:17:25 04/03/20 22 04/03/2022 COMPR EHENS BRYNN METAB OLIC PANEL GFR >60 Refer ence Range : [place] ge GFR Healt hy Adult : >60 mL/mi n/1.7 3 m2 Chron ic Kidne y Disea se: 15-60 mL/mi n/1.7 3 m2 Kidne y Failu re: <15/m L/min /1.73 m2 www.n iddk. nih.g ov The MDRD study equat ion has not been valid ated in child bradford <18 years of age; pregn ant women ; the elder ly >85 years of age; or in some racia l or ethni c subgr oups, such as Hispa nics. Outsi de the valid ated valeriano eters , estim ated GFR is less accur ate, requi ring clini kevin judgm ent on a case- by-ca se basis . Clini kevin inter preta tion for other races and ages must be made by the clini zacarias. The MDRD study equat ion has not been valid ated for the evalu ation of serum creat inine relat ed to nutri ervin l statu s or medic ation usage . For perso ns <18 years of age, a pedia tric GFR calcu lator is avail able on the [facility] websi te: https :[email or web address] josé.rd rg/pr ofess ional s/kdo qi/gf r_cal culat or Not Available [facility] (Lab) [address] [place], [address], 04/03/2022 14:17:25 04/03/20 22 04/03/2022 COMPR EHENS BRYNN METAB OLIC PANEL alkaline phosphatase 73 U/L 38-126 Not Available [facility] (Lab) [address] [place], [address], 04/03/2022 14:17:25 04/03/20 22 04/03/2022 COMPR EHENS BRYNN METAB OLIC PANEL alanine aminotransfe rase 77 U/L 0-50 high Not Available [facility] (Lab) [address] [place], [address], 04/03/2022 14:17:25 04/03/20 22 04/03/2022 COMPR EHENS BRYNN METAB OLIC PANEL aspartate aminotransfe rase 46 U/L 15-46 Not Available [facility] (Lab) [address] [place], [address], 04/03/2022 14:17:25 04/03/20 22 04/03/2022 COMPR EHENS BRYNN METAB OLIC PANEL bilirubin, total 0.50 mg/dL 0.20-1 .30 Not Available [facility] (Lab) [address] [place], [address], 04/03/2022 14:17:25 04/03/20 22 04/03/2022 COMPR EHENS BRYNN METAB OLIC PANEL calcium 9.2 mg/dL 8.4-10 .2 Not Available [facility] (Lab) [address] [place], [address], 04/03/2022 14:17:25 04/03/20 22 04/03/2022 COMPR EHENS BRYNN METAB OLIC PANEL total protein 7.4 g/dL 6.3-8. 2 Not Available [facility] (Lab) [address] [place], [address], 04/03/2022 14:17:25 04/03/20 22 04/03/2022 COMPR EHENS BRYNN METAB OLIC PANEL albumin 4.4 g/dL 3.4-5. 0 Not Available [facility] (Lab) [address] [place], [address], 04/03/2022 14:17:25 04/03/20 22 04/03/2022 COMPR EHENS BRYNN METAB OLIC PANEL globulin 3.0 g/dL 2.6-4. 2 Not Available [facility] (Lab) [address] [place], [address], 04/03/2022 14:17:25 04/03/20 22 04/03/2022 COMPR EHENS BRYNN METAB OLIC PANEL A/G ratio 1.5 ratio 1.0-2. 0 Not Available [facility] (Lab) [address] [place], [address], 04/03/2022 14:17:25 04/03/20 22 04/03/2022 PSA SCREE N PSA medicare screen 0.66 NG/mL 0.00-4 .00 Not Available [facility] (Lab) [address] [place], [address], 04/03/2022 14:37:42 04/03/20 22 04/03/2022 LIPID PANEL cholesterol 162 mg/dL 140-19 9 NIH DANNY NSUS RECOM MENDA TION FOR MYCHAL STERO L: ADULT CHILD LOW RISK: <200 <170 BORDE RLINE : <200- 239 ----- HIGH RISK: >240 >200 Not Available [facility] (Lab) [address] [place], [address], 04/03/2022 14:17:20 04/03/20 22 04/03/2022 LIPID PANEL triglyceride s 128 mg/dL 0-150 [facility] DANNY NSUS REPOR T RECOM MENDA TION FOR TRIGL YCERI LIDIA: ADULT CHILD LOW RISK: <150 ----- BODER LINE: 150-1 99 ----- HIGH RISK: >200 ----- Not Available [facility] (Lab) [address] [place], [address], 04/03/2022 14:17:20 04/03/20 22 04/03/2022 LIPID PANEL HDL cholesterol 47 mg/dL 40- Not Available [facility] (Lab) [address] [place], [address], 04/03/2022 14:17:20 04/03/20 22 04/03/2022 LIPID PANEL LDL cholesterol, calculated 89 mg/dL 0-130 [facility] DANNY NSUS REPOR T RECOM MENDA TIONS FOR LDL: ADULT CHILD LOW RISK <130 <110 (OPTI MAL LDL) <100 ----- BORDE RLINE : 130-1 59 ----- HIGH RISK: >160 >130 A TRIGL YCERI DE RESUL T >400 INVAL IDATE S THE CALCU LATIO N FOR LDL FRACT IONAT ION - THE LDL RESUL T WILL NOT BE REPOR DIAMOND. Not Available [facility] (Lab) [address] [place], [address], 04/03/2022 14:17:20 04/08/2004/08/2023 CBC/C OMPLE TE BLD COUNT W/DIF F white blood cells 5.8 x10'3 /uL 4.2-10 .8 Not Available [facility] (Lab) [address] [place], [address], 04/08/2023 12:42:34 04/08/20 23 04/08/2023 CBC/C OMPLE TE BLD COUNT W/DIF F red blood cells 5.14 x10'6 /uL 4.10-5 .80 Not Available [facility] (Lab) [address] [place], [address], 04/08/2023 12:42:34 04/08/20 23 04/08/2023 CBC/C OMPLE TE BLD COUNT W/DIF F hemoglobin 14.9 g/dL 13.2-1 7.0 Not Available [facility] (Lab) [address] [place], [address], 04/08/2023 12:42:34 04/08/20 23 04/08/2023 CBC/C OMPLE TE BLD COUNT W/DIF F hematocrit 45.4 % 39.3-5 0.0 Not Available [facility] (Lab) [address] [place], [address], 04/08/2023 12:42:34 04/08/20 23 04/08/2023 CBC/C OMPLE TE BLD COUNT W/DIF F mean red cell volume 88.3 fL 80.0-9 7.0 Not Available [facility] (Lab) [address] [place], [address], 04/08/2023 12:42:34 04/08/20 23 04/08/2023 CBC/C OMPLE TE BLD COUNT W/DIF F mean red cell hemoglobin 29.0 pg 27.0-3 3.0 Not Available [facility] (Lab) [address] [facility] [place], [address], 04/08/2023 12:42:34 04/08/20 23 04/08/2023 CBC/C OMPLE TE BLD COUNT W/DIF F mean RBC HGB concentratio n 32.8 g/dL 31.0-3 6.0 Not Available [facility] (Lab) [address] [place], [address], 04/08/2023 12:42:34 04/08/20 23 04/08/2023 CBC/C OMPLE TE BLD COUNT W/DIF F red cell distribution width 13.1 % 11.8-1 5.5 Not Available [facility] (Lab) [address] [place], [address], 04/08/2023 12:42:34 04/08/20 23 04/08/2023 CBC/C OMPLE TE BLD COUNT W/DIF F platelets 171 x10'3 /uL 150-40 0 Not Available [facility] (Lab) [address] [place], [address], 04/08/2023 12:42:34 04/08/20 23 04/08/2023 CBC/C OMPLE TE BLD COUNT W/DIF F mean platelet volume 10.4 fL 9.0-12 .4 Not Available [facility] (Lab) [address] [place], [address], 04/08/2023 12:42:34 04/08/20 23 04/08/2023 CBC/C OMPLE TE BLD COUNT W/DIF F neutrophils 67.9 % 39.0-7 2.0 Not Available [facility] (Lab) [address] [place], [address], 04/08/2023 12:42:34 04/08/20 23 04/08/2023 CBC/C OMPLE TE BLD COUNT W/DIF F lymphocytes 17.9 % 16.0-4 7.0 Not Available [facility] (Lab) [address] [place], [address], 04/08/2023 12:42:34 04/08/2004/08/2023 CBC/C OMPLE TE BLD COUNT W/DIF F monocytes 8.0 % 5.0-12 .0 Not Available [facility] (Lab) [address] [place], [address], 04/08/2023 12:42:34 04/08/2004/08/2023 CBC/C OMPLE TE BLD COUNT W/DIF F eosinophils 5.4 % 1.0-7. 0 Not Available [facility] (Lab) [address] [place], [address], 04/08/2023 12:42:34 04/08/2004/08/2023 CBC/C OMPLE TE BLD COUNT W/DIF F basophils 0.5 % 0.0-2. 0 Not Available [facility] (Lab) [address] [place], [address], 04/08/2023 12:42:34 04/08/2004/08/2023 CBC/C OMPLE TE BLD COUNT W/DIF F immature granulocytes 0.3 % 0.00-0 .50 Not Available [facility] (Lab) [address] [place], [address], 04/08/2023 12:42:34 04/08/20 23 04/08/2023 CBC/C OMPLE TE BLD COUNT W/DIF F neutrophils, absolute count 3.91 x10'3 /uL 1.5-8. 0 Not Available [facility] (Lab) [address] [place], [address], 04/08/2023 12:42:34 04/08/20 23 04/08/2023 CBC/C OMPLE TE BLD COUNT W/DIF F lymphocytes, absolute count 1.03 x10'3 /uL 1.07-3 .43 low Not Available [facility] (Lab) [address] [place], [address], 04/08/2023 12:42:34 04/08/2004/08/2023 CBC/C OMPLE TE BLD COUNT W/DIF F monocytes, absolute count 0.46 x10'3 /uL 0.29-0 .99 Not Available [facility] (Lab) [address] [place], [address], 04/08/2023 12:42:34 04/08/20 23 04/08/2023 CBC/C OMPLE TE BLD COUNT W/DIF F eosinophils, absolute count 0.31 x10'3 /uL 0.02-0 .53 Not Available [facility] (Lab) [address] [place], [address], 04/08/2023 12:42:34 04/08/20 23 04/08/2023 CBC/C OMPLE TE BLD COUNT W/DIF F basophils, absolute count 0.03 x10'3 /uL 0.01-0 .08 Not Available [facility] (Lab) [address] [place], [address], 04/08/2023 12:42:34 04/08/20 23 04/08/2023 CBC/C OMPLE TE BLD COUNT W/DIF F immature granulocytes ,absolute 0.02 x10'3 /uL 0.00-0 .05 Not Available [facility] (Lab) [address] [place], [address], 04/08/2023 12:42:34 04/08/20 23 04/08/2023 CBC/C OMPLE TE BLD COUNT W/DIF F nucleated red blood cells 0.0 % -0 Not Available [facility] (Lab) [address] [place], [address], 04/08/2023 12:42:34 04/08/20 23 04/08/2023 CBC/C OMPLE TE BLD COUNT W/DIF F NRBC# 0.00 x10'3 /uL Not Available [facility] (Lab) [address] [facility] [place], [address], 04/08/2023 12:42:34 04/08/20 23 04/08/2023 COMPR EHENS BRYNN METAB OLIC PANEL sodium 142 mmol/ L 137-14 5 Not Available [facility] (Lab) [address] [place], [address], 04/08/2023 12:51:23 04/08/20 23 04/08/2023 COMPR EHENS BRYNN METAB OLIC PANEL potassium 3.9 mmol/ L 3.5-5. 1 Not Available [facility] (Lab) [address] [place], [address], 04/08/2023 12:51:23 04/08/20 23 04/08/2023 COMPR EHENS BRYNN METAB OLIC PANEL chloride 105 mmol/ L 98-107 Not Available [facility] (Lab) [address] [place], [address], 04/08/2023 12:51:23 04/08/20 23 04/08/2023 COMPR EHENS BRYNN METAB OLIC PANEL carbon dioxide 28 mmol/ L 22-30 Not Available [facility] (Lab) [address] [place], [address], 04/08/2023 12:51:23 04/08/20 23 04/08/2023 COMPR EHENS BRYNN METAB OLIC PANEL anion gap 12.9 mmol/ L 14-22 low Not Available [facility] (Lab) [address] [place], [address], 04/08/2023 12:51:23 04/08/20 23 04/08/2023 COMPR EHENS BRYNN METAB OLIC PANEL glucose 90 mg/dL 70-99 Not Available [facility] (Lab) [address] [place], [address], 04/08/2023 12:51:23 04/08/20 23 04/08/2023 COMPR EHENS BRYNN METAB OLIC PANEL BUN 12 mg/dL 8-19 Not Available [facility] (Lab) [address] [place], [address], 04/08/2023 12:51:23 04/08/20 23 04/08/2023 COMPR EHENS BRYNN METAB OLIC PANEL creatinine 0.97 mg/dL 0.66-1 .25 Not Available [facility] (Lab) [address] [place], [address], 04/08/2023 12:51:23 04/08/20 23 04/08/2023 COMPR EHENS BRYNN METAB OLIC PANEL GFR >60 Refer ence Range : [place] ge GFR Healt hy Adult : >60 mL/mi n/1.7 3 m2 Chron ic Kidne y Disea se: 15-60 mL/mi n/1.7 3 m2 Kidne y Failu re: <15/m L/min /1.73 m2 www.n iddk. nih.g ov The MDRD study equat ion has not been valid ated in child bradford <18 years of age; pregn ant women ; the elder ly >85 years of age; or in some racia l or ethni c subgr oups, such as Hispa nics. Outsi de the valid ated valeriano eters , estim ated GFR is less accur ate, requi ring clini kevin judgm ent on a case- by-ca se basis . Clini kevin inter preta tion for other races and ages must be made by the clini zacarias. The MDRD study equat ion has not been valid ated for the evalu ation of serum creat inine relat ed to nutri ervin l statu s or medic ation usage . For perso ns <18 years of age, a pedia tric GFR calcu lator is avail able on the [facility] websi te: https ://ww w.kid arnav.o rg/pr ofess ional s/kdo qi/gf r_cal culat or Not Available [facility] (Lab) [address] [place], [address], 04/08/2023 12:51:23 04/08/20 23 04/08/2023 COMPR EHENS BRYNN METAB OLIC PANEL alkaline phosphatase 58 U/L 38-126 Not Available [facility] (Lab) [address] [place], [address], 04/08/2023 12:51:23 04/08/20 23 04/08/2023 COMPR EHENS BRYNN METAB OLIC PANEL alanine aminotransfe rase 28 U/L 0-50 Not Available [facility] (Lab) [address] [place], [address], 04/08/2023 12:51:23 04/08/20 23 04/08/2023 COMPR EHENS BRYNN METAB OLIC PANEL aspartate aminotransfe rase 23 U/L 15-46 Not Available [facility] (Lab) [address] [place], [address], 04/08/2023 12:51:23 04/08/20 23 04/08/2023 COMPR EHENS BRYNN METAB OLIC PANEL bilirubin, total 0.60 mg/dL 0.20-1 .30 Not Available [facility] (Lab) [address] [place], [address], 04/08/2023 12:51:23 04/08/20 23 04/08/2023 COMPR EHENS BRYNN METAB OLIC PANEL calcium 9.2 mg/dL 8.4-10 .2 Not Available [facility] (Lab) [address] [place], [address], 04/08/2023 12:51:23 04/08/20 23 04/08/2023 COMPR EHENS BRYNN METAB OLIC PANEL total protein 6.9 g/dL 6.3-8. 2 Not Available [facility] (Lab) [address] [place], [address], 04/08/2023 12:51:23 04/08/20 23 04/08/2023 COMPR EHENS BRYNN METAB OLIC PANEL albumin 3.9 g/dL 3.4-5. 0 Not Available [facility] (Lab) [address] [place], [address], 04/08/2023 12:51:23 04/08/20 23 04/08/2023 COMPR EHENS BRYNN METAB OLIC PANEL globulin 3.0 g/dL 2.6-4. 2 Not Available [facility] (Lab) [address] [place], [address], 04/08/2023 12:51:23 04/08/20 23 04/08/2023 COMPR EHENS BRYNN METAB OLIC PANEL A/G ratio 1.3 ratio 1.0-2. 0 Not Available [facility] (Lab) [address] [place], [address], 04/08/2023 12:51:23 04/08/2004/08/2023 LIPID PANEL cholesterol 140 mg/dL 140-19 9 [facility] DANNY NSUS RECOM MENDA TION FOR MYCHAL STERO L: ADULT CHILD LOW RISK: <200 <170 BORDE RLINE : <200- 239 ----- HIGH RISK: >240 >200 Not Available [facility] (Lab) [address] [place], [address], 04/08/2023 12:51:27 04/08/20 23 04/08/2023 LIPID PANEL triglyceride s 59 mg/dL 0-150 [facility] DANNY NSUS REPOR T RECOM MENDA TION FOR TRIGL YCERI LIDIA: ADULT CHILD LOW RISK: <150 ----- BODER LINE: 150-1 99 ----- HIGH RISK: >200 ----- Not Available [facility] (Lab) [address] [place], [address], 04/08/2023 12:51:27 04/08/20 23 04/08/2023 LIPID PANEL HDL cholesterol 55 mg/dL 40- Not Available [facility] (Lab) [address] [place], [address], 04/08/2023 12:51:27 04/08/20 23 04/08/2023 LIPID PANEL LDL cholesterol, calculated 73 mg/dL 0-130 [facility] DANNY NSUS REPOR T RECOM MENDA TIONS FOR LDL: ADULT CHILD LOW RISK <130 <110 (OPTI MAL LDL) <100 ----- BORDE RLINE : 130-1 59 ----- HIGH RISK: >160 >130 A TRIGL YCERI DE RESUL T >400 INVAL IDATE S THE CALCU LATIO N FOR LDL FRACT IONAT ION - THE LDL RESUL T WILL NOT BE REPOR DIAMOND. Not Available [facility] (Lab) [address] [place], [address], 04/08/2023 12:51:27 04/08/2004/08/2023 T4 FREE free T4 1.12 NG/dL 0.78-2 .19 Not Available [facility] (Lab) [address] [place], [address], 04/08/2023 12:56:40 04/08/20 23 04/08/2023 TSH thyroid-stim ulating hormone 1.100 uIU/m L 0.465- 4.680 Not Available [facility] (Lab) [address] [place], [address], 04/08/2023 13:07:49 04/08/20 23 04/08/2023 PSA, TOTAL PSA, total 0.75 NG/mL 0.00-4 .00 Not Available [facility] (Lab) [address] [place], [address], 04/08/2023 13:07:55 05/11/20 24 05/11/2024 CBC/C OMPLE TE BLD COUNT W/DIF F white blood cells 10.5 x10'3 /uL 4.2-10 .8 Not Available [facility] (Lab) [address] [place], [address], 05/11/2024 14:29:39 05/11/20 24 05/11/2024 CBC/C OMPLE TE BLD COUNT W/DIF F red blood cells 5.03 x10'6 /uL 4.10-5 .80 Not Available [facility] (Lab) [address] [place], [address], 05/11/2024 14:29:39 05/11/20 24 05/11/2024 CBC/C OMPLE TE BLD COUNT W/DIF F hemoglobin 14.9 g/dL 13.2-1 7.0 Not Available [facility] (Lab) [address] [place], [address], 05/11/2024 14:29:39 05/11/20 24 05/11/2024 CBC/C OMPLE TE BLD COUNT W/DIF F hematocrit 43.8 % 39.3-5 0.0 Not Available [facility] (Lab) [address] [place], [address], 05/11/2024 14:29:39 05/11/20 24 05/11/2024 CBC/C OMPLE TE BLD COUNT W/DIF F mean red cell volume 87.1 fL 80.0-9 7.0 Not Available [facility] (Lab) [address] [place], [address], 05/11/2024 14:29:39 05/11/20 24 05/11/2024 CBC/C OMPLE TE BLD COUNT W/DIF F mean red cell hemoglobin 29.6 pg 27.0-3 3.0 Not Available [facility] (Lab) [address] [place], [address], 05/11/2024 14:29:39 05/11/20 24 05/11/2024 CBC/C OMPLE TE BLD COUNT W/DIF F mean RBC HGB concentratio n 34.0 g/dL 31.0-3 6.0 Not Available [facility] (Lab) [address] [place], [address], 05/11/2024 14:29:39 05/11/20 24 05/11/2024 CBC/C OMPLE TE BLD COUNT W/DIF F red cell distribution width 12.9 % 11.8-1 5.5 Not Available [facility] (Lab) [address] [place], [address], 05/11/2024 14:29:39 05/11/20 24 05/11/2024 CBC/C OMPLE TE BLD COUNT W/DIF F platelets 241 x10'3 /uL 150-40 0 Not Available [facility] (Lab) [address] [place], [address], 05/11/2024 14:29:39 05/11/20 24 05/11/2024 CBC/C OMPLE TE BLD COUNT W/DIF F mean platelet volume 10.8 fL 9.0-12 .4 Not Available [facility] (Lab) [address] [place], [address], 05/11/2024 14:29:39 05/11/20 24 05/11/2024 CBC/C OMPLE TE BLD COUNT W/DIF F neutrophils 83.9 % 39.0-7 2.0 high Not Available [facility] (Lab) [address] [place], [address], 05/11/2024 14:29:39 05/11/20 24 05/11/2024 CBC/C OMPLE TE BLD COUNT W/DIF F lymphocytes 9.8 % 16.0-4 7.0 low Not Available [facility] (Lab) [address] [place], [address], 05/11/2024 14:29:39 05/11/20 24 05/11/2024 CBC/C OMPLE TE BLD COUNT W/DIF F monocytes 5.6 % 5.0-12 .0 Not Available [facility] (Lab) [address] [place], [address], 05/11/2024 14:29:39 05/11/20 24 05/11/2024 CBC/C OMPLE TE BLD COUNT W/DIF F eosinophils 0.0 % 1.0-7. 0 low Not Available [facility] (Lab) [address] [place], [address], 05/11/2024 14:29:39 05/11/20 24 05/11/2024 CBC/C OMPLE TE BLD COUNT W/DIF F basophils 0.2 % 0.0-2. 0 Not Available [facility] (Lab) [address] [place], [address], 05/11/2024 14:29:39 05/11/20 24 05/11/2024 CBC/C OMPLE TE BLD COUNT W/DIF F immature granulocytes 0.5 % 0.00-0 .50 Not Available [facility] (Lab) [address] [place], [address], 05/11/2024 14:29:39 05/11/20 24 05/11/2024 CBC/C OMPLE TE BLD COUNT W/DIF F neutrophils, absolute count 8.78 x10'3 /uL 1.5-8. 0 high Not Available [facility] (Lab) [address] [place], [address], 05/11/2024 14:29:39 05/11/20 24 05/11/2024 CBC/C OMPLE TE BLD COUNT W/DIF F lymphocytes, absolute count 1.02 x10'3 /uL 1.07-3 .43 low Not Available [facility] (Lab) [address] [place], [address], 05/11/2024 14:29:39 05/11/20 24 05/11/2024 CBC/C OMPLE TE BLD COUNT W/DIF F monocytes, absolute count 0.59 x10'3 /uL 0.29-0 .99 Not Available [facility] (Lab) [address] [place], [address], 05/11/2024 14:29:39 05/11/20 24 05/11/2024 CBC/C OMPLE TE BLD COUNT W/DIF F eosinophils, absolute count 0.00 x10'3 /uL 0.02-0 .53 low Not Available [facility] (Lab) [address] [place], [address], 05/11/2024 14:29:39 05/11/20 24 05/11/2024 CBC/C OMPLE TE BLD COUNT W/DIF F basophils, absolute count 0.02 x10'3 /uL 0.01-0 .08 Not Available [facility] (Lab) [address] [place], [address], 05/11/2024 14:29:39 05/11/20 24 05/11/2024 CBC/C OMPLE TE BLD COUNT W/DIF F immature granulocytes ,absolute 0.05 x10'3 /uL 0.00-0 .05 Not Available [facility] (Lab) [address] [place], [address], 05/11/2024 14:29:39 05/11/20 24 05/11/2024 CBC/C OMPLE TE BLD COUNT W/DIF F nucleated red blood cells 0.0 % -0 Not Available [facility] (Lab) [address] [place], [address], 05/11/2024 14:29:39 05/11/20 24 05/11/2024 CBC/C OMPLE TE BLD COUNT W/DIF F NRBC# 0.00 x10'3 /uL Not Available [facility] (Lab) [address] [place], [address], 05/11/2024 14:29:39 05/11/20 24 05/11/2024 LIPID PANEL cholesterol 126 mg/dL 140-19 9 low [facility] DANNY NSUS RECOM MENDA TION FOR MYCHAL STERO L: ADULT CHILD LOW RISK: <200 <170 BORDE RLINE : <200- 239 ----- HIGH RISK: >240 >200 Not Available [facility] (Lab) [address] [place], [address], 05/11/2024 14:49:59 05/11/20 24 05/11/2024 LIPID PANEL triglyceride s 47 mg/dL 0-150 [facility] DANNY NSUS REPOR T RECOM MENDA TION FOR TRIGL YCERI LIDIA: ADULT CHILD LOW RISK: <150 ----- BODER LINE: 150-1 99 ----- HIGH RISK: >200 ----- Not Available [facility] (Lab) [address] [place], [address], 05/11/2024 14:49:59 05/11/20 24 05/11/2024 LIPID PANEL HDL cholesterol 51 mg/dL 40- Not Available [facility] (Lab) [address] [place], [address], 05/11/2024 14:49:59 05/11/20 24 05/11/2024 LIPID PANEL LDL cholesterol, calculated 66 mg/dL 0-130 [facility] DANNY NSUS REPOR T RECOM MENDA TIONS FOR LDL: ADULT CHILD LOW RISK <130 <110 (OPTI MAL LDL) <100 ----- BORDE RLINE : 130-1 59 ----- HIGH RISK: >160 >130 A TRIGL YCERI DE RESUL T >400 INVAL IDATE S THE CALCU LATIO N FOR LDL FRACT IONAT ION - THE LDL RESUL T WILL NOT BE REPOR DIAMOND. Not Available [facility] (Lab) [address] [place], [address], 05/11/2024 14:49:59 05/11/20 24 05/11/2024 COMPR EHENS BRYNN METAB OLIC PANEL sodium 139 mmol/ L 137-14 5 Not Available [facility] (Lab) [address] [place], [address], 05/11/2024 14:50:06 05/11/20 24 05/11/2024 COMPR EHENS BRYNN METAB OLIC PANEL potassium 3.7 mmol/ L 3.5-5. 1 Not Available [facility] (Lab) [address] [place], [address], 05/11/2024 14:50:06 05/11/20 24 05/11/2024 COMPR EHENS BRYNN METAB OLIC PANEL chloride 107 mmol/ L 98-107 Not Available [facility] (Lab) [address] [place], [address], 05/11/2024 14:50:06 05/11/20 24 05/11/2024 COMPR EHENS BRYNN METAB OLIC PANEL carbon dioxide 26 mmol/ L 22-30 Not Available [facility] (Lab) [address] [place], [address], 05/11/2024 14:50:06 05/11/20 24 05/11/2024 COMPR EHENS BRYNN METAB OLIC PANEL anion gap 9.7 mmol/ L 14-22 low Not Available [facility] (Lab) [address] [place], [address], 05/11/2024 14:50:06 05/11/20 24 05/11/2024 COMPR EHENS BRYNN METAB OLIC PANEL glucose 109 mg/dL 70-99 high Not Available [facility] (Lab) [address] [place], [address], 05/11/2024 14:50:06 05/11/20 24 05/11/2024 COMPR EHENS BYRNN METAB OLIC PANEL BUN 16 mg/dL 8-19 Not Available [facility] (Lab) [address] [place], [address], 05/11/2024 14:50:06 05/11/20 24 05/11/2024 COMPR EHENS BRYNN METAB OLIC PANEL creatinine 0.90 mg/dL 0.66-1 .25 Not Available [facility] (Lab) [address] [place], [address], 05/11/2024 14:50:06 05/11/20 24 05/11/2024 COMPR EHENS BRYNN METAB OLIC PANEL GFR >60 Refer ence Range : [place] ge GFR Healt hy Adult : >60 mL/mi n/1.7 3 m2 Chron ic Kidne y Disea se: 15-60 mL/mi n/1.7 3 m2 Kidne y Failu re: <15/m L/min /1.73 m2 www.n iddk. nih.g ov The MDRD study equat ion has not been valid ated in child bradford <18 years of age; pregn ant women ; the elder ly >85 years of age; or in some racia l or ethni c subgr oups, such as Hispa nics. Outsi de the valid ated valeriano eters , estim ated GFR is less accur ate, requi ring clini kevin judgm ent on a case- by-ca se basis . Clini kevin inter preta tion for other races and ages must be made by the clini zacarias. The MDRD study equat ion has not been valid ated for the evalu ation of serum creat inine relat ed to nutri ervin l statu s or medic ation usage . For perso ns <18 years of age, a pedia tric GFR calcu latroger is avail able on the [facility] websi te: https ://john josé.rd wayne/pr ofess ional s/kdo qi/gf r_cal culat or Not Available [facility] (Lab) [address] [place], [address], 05/11/2024 14:50:06 05/11/20 24 05/11/2024 COMPR EHENS BRYNN METAB OLIC PANEL alkaline phosphatase 79 U/L 38-126 Not Available [facility] (Lab) [address] [place], [address], 05/11/2024 14:50:06 05/11/20 24 05/11/2024 COMPR EHENS BRYNN METAB OLIC PANEL alanine aminotransfe rase 32 U/L 0-50 Not Available [facility] (Lab) [address] [place], [address], 05/11/2024 14:50:06 05/11/20 24 05/11/2024 COMPR EHENS BRYNN METAB OLIC PANEL aspartate aminotransfe rase 34 U/L 15-46 Not Available [facility] (Lab) [address] [place], [address], 05/11/2024 14:50:06 05/11/20 24 05/11/2024 COMPR EHENS BRYNN METAB OLIC PANEL bilirubin, total 0.70 mg/dL 0.20-1 .30 Not Available [facility] (Lab) [address] [place], [address], 05/11/2024 14:50:06 05/11/20 24 05/11/2024 COMPR EHENS BRYNN METAB OLIC PANEL calcium 9.3 mg/dL 8.4-10 .2 Not Available [facility] (Lab) [address] [place], [address], 05/11/2024 14:50:06 05/11/20 24 05/11/2024 COMPR EHENS BRYNN METAB OLIC PANEL total protein 7.5 g/dL 6.3-8. 2 Not Available [facility] (Lab) [address] [place], [address], 05/11/2024 14:50:06 05/11/20 24 05/11/2024 COMPR EHENS BRYNN METAB OLIC PANEL albumin 4.7 g/dL 3.4-5. 0 Not Available [facility] (Lab) [address] [place], [address], 05/11/2024 14:50:06 05/11/20 24 05/11/2024 COMPR EHENS BRYNN METAB OLIC PANEL globulin 2.8 g/dL 2.6-4. 2 Not Available [facility] (Lab) [address] [place], [address], 05/11/2024 14:50:06 05/11/20 24 05/11/2024 COMPR EHENS BRYNN METAB OLIC PANEL A/G ratio 1.7 ratio 1.0-2. 0 Not Available [facility] (Lab) [address] [place], [address], 05/11/2024 14:50:06 05/11/20 24 05/11/2024 PSA, TOTAL PSA, total 0.70 NG/mL 0.00-4 .00 Not Available [facility] (Lab) [address] [place], [address], 05/11/2024 15:17:19 04/02/20 21 04/02/2021 , [facility] [address] [place] [address] [phone] Patien t Name: BRANDON AARON Whyte Access ion #: [id number] Sex: M : 1974 4 Locati on: RAD Attend ing Physic khadijah: DAIANA MIRANDA CE Orderi ng Physic khadijah: DAIANA MIRANDA CE Exam Date: 04/02/20 3:25 PM Exam Name: SCRLESTERU April Admitt ing Diagno sis(es ): RADIOL OGY REPORT - FINAL EXAM: US SCROTU M HISTOR Y: epidid ymis cyst 46-yea r-old male with epidid ymal cyst. COMPAR MANDY: None availa ble. TECHNI QUE: Scrota l ultras ound was perfor med. FINDIN GS: The right testic le measur es 4.7 x 2.6 x 3.3 cm. The left testic le measur es 4.8 x 2.2 x 3.0 cm. No testic ular masses , cystic lesion s, abnorm al color Dopple r blood flow or suspic ious calcif icatio ns are identi fied bilate rally. There is a hypoec hoic 14 mm lesion of the right epidid ymis. No abnorm al color Dopple r blood flow is identi fied in the bilate ral epidid ymi. There are small hydroc eles bilate rally. No eviden ce of left varico luz with the Page 1 of 2 [facility] Name: AARON TAYLOR [facility] ion #: [id number] Sex: M : 1974 5 Exam Date: 04/02/20 3:25 PM Exam Name: US MCMAHONU April Admitt ing Diagno sis(es ): patien t perfor ricky Valsal va maneuv er. There is a mild right varico luz. IMPRES AJ: 1. No eviden ce of testic ular mass, epidid ymitis , orchit is. 2. Mild right varico luz. 3. Small bilate ral hydroc eles. 4. Hypoec hoic mass-l oscar lesion of the right epidid ymis measur es 14 mm. Recomm end follow -up ultras ound evalua tion of this lesion in 6 months to assure stabil ity of this appear ance. Create d and electr onical ly signed by: Efren mccabe MD Signed Date: 04/02/20 3:48 PM (CT) Dictat ed by: Efren mccabe MD (CT) (CT) Page 2 of 2 [id number] [facility] (Imaging) [address], [place], [address], 12/24/2022 12:59:31 Result Notes None recorded. Problems Name Problem SNOMED Code Status Onset Date Resolution Date Notes Provider Name and Address Organization Details Recorded Time Lateral epicondyli tis 332300988 Active Not Available [facility] 3 12:55:16 Gastroesop hageal reflux disease 067497862 Active Not Available [facility] 3 12:55:16 Headache 74997502 Active Not Available [facility] 3 12:55:16 Dyspnea 654940726 Active Not Available [facility] 3 12:55:16 Long-term current use of opiate analgesic drug 9473724579733 08 Active 2021 Not Available [facility] 3 12:55:16 Medial epicondyli tis 46086044 Active Not Available [facility] 3 12:55:17 Medial epicondyli tis 47851547 Active 2021 Not Available [facility] 3 12:55:17 Hyperlipid emia 39934341 Active 2020 Not Available [facility] 3 12:55:17 Verruca plantaris 92749535 Active Not Available [facility] 3 12:55:17 Pain in elbow 61405073 Active Not Available [facility] 3 12:55:17 COVID-19 357239810 Active 2021 Not Available [facility] 3 12:55:17 Transient hypertensi on 07408827 Active 2022 Ami Miranda MD [address], [address], [place], [address] , [facility] [employer] [facility] 3 11:06:03 Lesion of skin of face 294421704451 Active 2022 Ami Miranda MD [address], [address], [place], [address] , [facility] [employer] [facility] 3 11:09:57 Skin lesion 97264742 Active 2022 Ami Miranda MD [address], [place], [address] , [employer] [facility] [employer] [facility] 3 11:10:05 Pain in both feet 6612550196945 9102 Active 2022 Ami Miranda MD [address], [address], [place], [address] , [facility] [employer] [facility] [employer] [facility] 3 11:13:16 Anterior to posterior tear of superior glenoid labrum of right shoulder 3189598860655 9104 Active 2022 Ami Miranda MD [address], [place], [address] , [facility] [employer] [facility] [employer] [facility] 3 11:16:48 Disorder of prostate 43254890 Active 2023 Ami Miranda MD [address], [address], [place], [address] , [facility] [employer] [facility] 4 10:54:36 Fever 271925810 Active 2024 Shira Galaviz CMA null, [facility] [employer] [facility] 5 11:21:51 Problem Notes None recorded. Procedures Surgical History None recorded. Imaging Results Imaging Date Name Status LastModified by Organiz ation Details LastModified Time 04/02/2021 US, scrotum completed [id number] [facility] (Imaging) [address], [place], [address], 12/24/2022 12:59:31 Procedure Notes None recorded. Medical Equipment None Reported. Allergies Allergen ID Allergen Name Allergen Category Reaction Reaction Severity Criticality Documentation Date Start Date Code Code System Note Provider Name and Address Organization Details Recorded Time 47870 Substance with sulfonami de structure and antibacte rial mechanism of action (substanc e) medicatio n Not available Not available Not available 12/24/2022 07624 8003 SNOMED Not Available [facility] 12:59:19 Medications Name Sig Start Date Stop Date Status Note LastModified by Organization Details LastModified Time losartan 50 mg tablet TAKE 1 TABLET BY MOUTH EVERY DAY active Not Available Not Available No t Available amoxicillin 500 mg capsule Take 1 capsule 3 times a day by oral route for 10 days. 03/08 completed Not Available Not Available Not Available azithromyci n 250 mg tablet TAKE 2 TABLETS (500 MG) BY ORAL ROUTE ONCE DAILY FOR 1 DAY THEN 1 TABLET (250 MG) BY ORAL ROUTE ONCE DAILY FOR 4 DAYS 04/02 completed Not Available Not Available Not Available benzonatate 200 mg capsule Take 1 capsule 3 times a day by oral route. 03/09 completed Not Available Not Available Not Available hydrocodone 5 mg-acetamin ophen 325 mg tablet TAKE 1 TO 2 TABLETS BY MOUTH EVERY 4 TO 6 HOURS NEEDED 04/02 completed Not Available Not Available Not Available meloxicam 15 mg tablet TK 1 T PO QD active Not Available Not Available No t Available ondansetron HCl 4 mg tablet 10/07 completed Not Available Not Available Not Available aspirin 81 mg tablet,jenny yed release TAKE 1 TABLET BY MOUTH TWICE DAILY 05/11 completed Not Available Not Available Not Available tramadol 50 mg tablet active Not Available Not Available No t Available amoxicillin 500 mg tablet TAKE 1 TABLET BY MOUTH EVERY 8 HOURS UNTIL GONE 03/20 completed Not Available Not Available Not Available meloxicam 7.5 mg tablet 05/11 completed Not Available Not Available Not Available oxycodone-a cetaminophe n 5 mg-325 mg tablet TAKE 1 TABLET BY MOUTH EVERY 6 HOURS NEEDED FOR PAIN 05/11 completed Not Available Not Available Not Available Tessalon Perles 100 mg capsule Take 1 capsule 3 times a day by oral route. 03/08 completed Not Available Not Available Not Available calcium 600 mg (as calcium carbonate 1,500 mg) tablet active Not Available Not Available Not Available Kenalog 10 mg/mL suspension for injection In office injection administe red by the provider 03/14 completed [facility]: 0003- 0494- 20 Not Available Not Available Not Available dexamethaso ne 2 mg tablet One Tablet TID for 3 Days One Tablet BID for 3 Days One Table once daily 3 days active Not Available Not Available No t Available cephalexin 500 mg capsule TAKE 1 CAPSULE BY MOUTH THREE TIMES DAILY FOR 7 DAYS 04/02 completed Not Available Not Available Not Available Valtrex 1 gram tablet Take 1 tablet 3 times a day by oral route. 03/08 completed Not Available Not Available Not Available docusate sodium 100 mg capsule TAKE 1 CAPSULE BY MOUTH TWICE DAILY 05/11 completed Not Available Not Available Not Available diclofenac sodium 75 mg tablet,jenny yed release TAKE 1 TABLET BY MOUTH TWICE DAILY NEEDED 05/11 completed Not Available Not Available Not Available mupirocin 2 % topical ointment APPLY TOPICALY TWICE DAILY FOR 5 DAYS. APPLY TO NOSTRILS TWICE DAILY STARTING 5 DAYS PRIOR TO SURGERY active Not Available Not Available No t Available ergocalcife rol (vitamin D2) 1,250 mcg (50,000 unit) capsule TAKE 1 CAPSULE BY MOUTH 1 TIME A WEEK FOR 12 WEEKS. FOLLOW UP WITH PCP active Not Available Not Available No t Available [place] 7.5 mg-325 mg tablet Take 1 tablet every 6 hours by oral route. 03/08 completed Not Available Not Available Not Available methylpredn isolone 4 mg tablets in a dose pack FOLLOW PACKAGE DIRECTION S 05/11 completed Not Available Not Available Not Available oxycodone 5 mg tablet active Not Available Not Available No t Available rosuvastati n 10 mg tablet TAKE 1 TABLET BY MOUTH DAILY 2024 active Not Available Not Available Not Avai lable sildenafil (pulmonary hypertensio n) 20 mg tablet TAKE 1 TO 5 TABLETS BY MOUTH DAILY NEEDED 04/02 completed Not Available Not Available Not Available pregabalin 75 mg capsule active Not Available Not Available Not Available lidocaine (PF) 10 mg/mL (1 %) injection solution In office injection administe red by the provider 03/14 completed [facility]: 0409- 4276- 17 Not Available Not Available Not Available Eliquis 2.5 mg tablet active Not Available Not Available No t Available Stimulant Laxative Plus 8.6 mg-50 mg tablet TAKE ONE TABLET BY MOUTH DAILY active Not Available Not Available No t Available ID NOW COVID-19 Test Kit TEST DIRECTED TODAY 04/02 completed Not Available Not Available Not Available Vitals Date Recorded Body mass index (BMI) Heart rate Body height Oxygen saturation Oxygen saturation in Arterial blood by Pulse oximetry Heart rate Body weight Systolic blood pressure Diastolic blood pressure Provider Name and Address Organization Details Last Updated DateTime 1 25.4 kg/m2 12 /min 182.88 cm 98 % 98 % 65 /min 74330.5 7 g 118 mm[Hg] 78 mm[Hg] Not Available [facility] 3 12:53:32 Date Recorded Body mass index (BMI) Body height Oxygen saturation Oxygen saturation in Arterial blood by Pulse oximetry Heart rate Body temperature Body weight Systolic blood pressure Diastolic blood pressure Provider Name and Address Organization Details Last Updated DateTime 2 26.6 kg/m2 182.88 cm 98 % 98 % 71 /min 96.9 [degF] 45907.9 g 130 mm[Hg] 78 mm[Hg] Not Available [facility] 3 12:53:32 Date Recorded Body height Body mass index (BMI) Body weight Heart rate Body temperature Oxygen saturation Oxygen saturation in Arterial blood by Pulse oximetry Systolic blood pressure Diastolic blood pressure Provider Name and Address Organization Details Last Updated DateTime 3 182.88 cm 25.2 kg/m2 47327.1 8 g 56 /min 97 [degF] 97 % 97 % 138 mm[Hg] 80 mm[Hg] [facility]ethmatti [facility] [employer] 3 10:53:51 Date Recorded Body height Body mass index (BMI) Body weight Heart rate Body temperature Oxygen saturation Oxygen saturation in Arterial blood by Pulse oximetry Systolic blood pressure Diastolic blood pressure Provider Name and Address Organization Details Last Updated DateTime 3 182.88 cm 25.5 kg/m2 71629.3 7 g 67 /min 97 [degF] 98 % 98 % 122 mm[Hg] 64 mm[Hg] Liseth Watkinsmonserrat [employer] [facility] 3 11:06:23 Date Recorded Body height Body mass index (BMI) Body weight Heart rate Body temperature Oxygen saturation Oxygen saturation in Arterial blood by Pulse oximetry Systolic blood pressure Diastolic blood pressure Provider Name and Address Organization Details Last Updated DateTime 4 182.88 cm 25 kg/m2 77918 g 64 /min 97.5 [degF] 98 % 98 % 138 mm[Hg] 80 mm[Hg] KATIA Kaufman [place] [facility] [place] [employer] [facility] 4 10:34:28 Social History None recorded. Functional Status None recorded. Mental Status None recorded. Family History Nothing Reported Notes:Mother 58 MVA Father 66 y/o deceassed Cholesterol, Depression and some dementia One brother with hx of ASD Medical History Condition Response BLINDNESS N NERVE DISEASE N RHEUMATIC FEVER N BLADDER PROBLEMS N KIDNEY STONES N MRSA N OTHER # 1 N POLIO N LUNG DISEASE/DISORDER N RADIATION / CHEMOTHERAPY N COPD N Other # 2 N BLOOD DISEASES N EAR OR HEARING PROBLEMS N MUMPS N DEPRESSION (INCLUDING POST ) N BOWEL PROBLEMS N STROKE/TIA N ULCERS N BENIGN PROSTATIC HYPERPLASIA N MEASLES N MYOCARDIAL INFARCTION N OBESITY N GERD/NAUSEA N ANEURYSM N URINARY/BLADDER/KIDNEY PROBLEMS N CORONARY ARTERY DISEASE (CAD) N ADDICTION CONCERNS N ENDOMETRIOSIS N Impotence N USE OF BLOOD THINNERS N SKIN PROBLEMS N GASTROINTESTINAL DISORDER N PERIPHERAL VASCULAR DISEASE N MUSCLE,JOINT OR BONE PROBLEMS N GASTROINTESTINAL BLEEDING N BLOOD CLOTS N ASTHMA N CATARACTS N ERECTILE DYSFUNCTION N VARICOSITIES N GI PROBLEMS N Low Testosterone N INFERTILITY N AIDS/HIV N CHEMOTHERAPY / RADIATION N LIVER DISEASE N MALE HYPOGONADISM N HYPERTENSION N Deficiency N TOURETTE'S N ANXIETY DISORDER N BLOOD TRANSFUSION N ANEMIA/BLOOD DISORDER N CHRONIC EAR INFECTIONS N BRONCHITIS N TUBERCULOSIS N GLAUCOMA N FOOT PROBLEM N DIVERTICULITIS N SLEEP APNEA N CHICKENPOX N INFECTIOUS DISEASE N HEART ARRHYTHMIA N PROSTATE N INSOMNIA N HIGH CHOLESTEROL / HYPERLIPIDEMIA N HYPERTHYROIDISM N EYE PROBLEMS N EDEMA N CHRONIC PAIN SYNDROME N HYPOTHYROIDISM N CAROTID BLOCKAGE N CONSTIPATION N BACK / NECK PROBLEMS N HAVE YOU BEEN HOSPITALIZED OR SEEN IN [facility] IN THE PAST YEAR ? N ATHEROSCLEROSIS N BREAST PROBLEMS N DIALYSIS N ECZEMA N OSTEOPOROSIS N ARTHRITIS N NO SIGNIFICANT PAST MEDICAL HISTORY N APPENDICITIS N DIABETES, TYPE N BAD TEETH N ENT N HEARTBURN / REFLUX Y AUTISM SPECTRUM DISORDER (ASD) N HEPATITIS / LIVER DISEASE N GOUT N SLEEP DISORDER N ALZHEIMER'S DISEASE N Brain Problems N HERPES N DEMENTIA N HEADACHES/MIGRAINES Y SEIZURES/EPILEPSY N VASCULAR DISEASE N PACEMAKER N Blood Disorder N DIZZINESS N HEART DISEASE/HEART PROBLEMS N KIDNEY DISEASE N MULTIPLE SCLEROSIS N CARDIAC ARRHYTHMIA N CANCER: SPECIFY N ATRIAL FIBRILLATION N Gall Stones N PULMONARY EMBOLISM N AUTOIMMUNE DISEASE N Immunizations Vaccine Type Date Status Note Provider [facility] e and Address Organization Details Recorded Time SARS-COV-2 (COVID-19) vaccine, UNSPECIFIED 1 completed Not Available [facility] 12/24/2022 12:59:10 SARS-COV-2 (COVID-19) vaccine, UNSPECIFIED 1 completed Not Available [facility] 12/24/2022 12:59:10 Past Encounters Encounter ID Performer Location Encounter Start Date Encounter Closed Date Diagnosis/Indication Diagnosis SNOMED-CT Code Diagnosis ICD10 Code Diagnosis Note [id number] [facility] [address] [address] 03/20/2021 00:00:00 03/20/2021 11:20:48 [id number] [facility] [address] [address] 04/02/2022 00:00:00 04/02/2022 11:09:06 [id number] Ami Miranda MD [facility] Internal Med [facility] [address] [address] 04/08/2023 10:37:43 04/08/2023 11:22:22 Adult health examination 036834636 Z00.00 Depression screening 171 539477 Z13.31 Transient hypertension 63856265 I10 Pain in both feet 624504 3264 2631319 M79.671 Skin lesion 79885873 L98 .9 Disorder of prostate 302 27945 N42.9 Hyperlipidemia 10656023 E78.5 [id number] Ami Miranda MD [facility] Internal Med [facility] [address] [address] 10/07/2023 10:43:32 10/07/2023 11:19:28 Hyperlipidemia 48748900 E78.5 Anterior t o posterior tear of superior glenoid labrum of right shoulder 6581954945 0467588 S43.431A [id number] Ami Miranda MD [facility] [address] [address] 05/11/2024 10:30:01 05/11/2024 11:00:59 Adult health examination 695808244 Z00.00 Depression screening 171 588401 Z13.31 Hyperlipidemia 46948917 E78.5 Disorder of prostate 302 13096 N42.9 Health Concerns Section Related Observation LastModified by Organization Detai ls LastModified Time None Recorded Concern Status LastModified by Organization Details LastModified Time None Recorded Advance Directives Directive None Recorded Payers Encounter Date Sequence Insurance Name Policy Number Policy Haynes Covered Member ID Haynes Member ID Guarantor Name 04/08/2023 1 [employer] - CHO[employer]US [id number] Aaron P [place] [id number] Aaron P [place] 04/08/2023 2 [employer] - CHOICE PLUS [id number] Jeimy R [place] [id number] Aaron P [place] 10/07/2023 1 [employer] CHO[employer]US [id number] Aaron P [place] [id number] Aaron P [place] 10/07/2023 2 [employer] - CHO[employer]US [id number] Jeimy R [place] [id number] Aaron P [place] 05/11/2024 1 [employer] - CHO[employer] [id number] Aaron P [place] [id number] Aaron P [place] 05/11/2024 2 [employer] [id number] Jeimy R [place] [id number] Aaron P [place] Notes Date Note Type Note Provider Name and Address Organization Details Recorded Time 3 text/html Patient Name: Aaron TaylorDate Of Service: Thursday ( 04.08.2023 ): 1975 Age: 48 There has been approximately a 10.5 lb weight loss since 04/02/2022. This represents approximately a 5.3% change in weight. Weight change attributable to lifestyle changes. Vital Signs:Blood Pressure: Sitting Rt. Arm 138/80Pulse: Sitting 56 /min and RegularRespirations: 12Height 72 in or 1.8 mWeight 186 lb or 84.4 kgBMI 25.2Temperature: 97 F or 36.1 CPulse Oximetry: 97 % at rest on no oxygen Chief Complaint: Addressed in HPI Problems or conditions discussed in the HPI were the only ones reviewed during the encounter.Only social and family history addressed in the HPI were reviewed during this encounter. Attendant(s): None Constitutional and Systemic Symptoms: none Medication Reconciliation: from medication list. History of Present Illness #1. Has had some transient elevation of the blood pressure which is normal today. Had a recent left hip injection at which time the blood pressure systolic was over 160. Has also had some occasional elevation of the diastolic pressure is well. Has has an occasional frontal headache. Associated with any visual disturbances. Not associated any focal neurological symptomatology. Normally is relieved by Tylenol or Advil. No interval complaints of any other systemic or constitutional symptomatology. No precipitating or aggravating factors outside of possibly pain.: #2. Bilateral foot pain thought to be secondary dystrophic nails. Will set up with Podiatry for further evaluation.#3. Skin lesion left forearm measuring approximately 0.5 cm in diameter. Appears to be raise with some scaling of the skin possibly represents a small squamous cell or basal cell carcinoma. Set up with Dermatology#4. Hyperlipidemia currently taking rosuvastatin. No interval complaints of any chest pain, shortness a of breath, orthopnea, PND or any other cardiovascular symptomatology.Medicatio n List Reviewed and Reconciled 04/08/2023Rosuvastatin 10 MG (TABLET - ORAL) One DailyVaccination and Jnasdzmehswe2207-44 [employer] StorageSurgical HistoryRight Elbow Tendonitis, Right Rotator Cuff, Rigth Hip Labrum Repair, Sinus SurgeryPreventative Testing Confirmed by Our Mpcznpj4404/03/2022 ALBUMIN 4.4 G/DL04/03/2022 PSA 0.66 NG/ML04/01/2018 COLONOSCOPY (10 YEARS) 04/01/2028Social HistoryDoes not smoke or drinkFamily HistoryMother 58 MVAFather 66 Cholesterol, Depression and some dementiaOne brother with hx of ASD Ami Miranda MD [address], [place], [address], [facility] [employer] [facility] 04/08/2023 11:14:54 3 text/html Patient Name: Aaron Fisher Of Service: Thursday ( 10.07.2023 ): 1975 Age: 48 There has been approximately a 2 lb weight gain since 04/08/2023. This represents approximately a 1.1% change in weight. Weight change attributable to lifestyle changes. Vital Signs:Blood Pressure: Sitting Rt. Arm 122/64Pulse: Sitting 67 /min and RegularRespiratory Rate: 12Height 72 in or 1.8 mWeight 188 lb or 85.3 kgBMI 25.5Temperature: 97 F or 36.1 CPulse Oximetry: 98 % at rest on no oxygen Chief Complaint: Addressed in HPI Problems or conditions discussed in the HPI were the only ones reviewed during the encounter.Only social and family history addressed in the HPI were reviewed during this encounter. Attendant(s): NoneConstitutional and Systemic Symptoms:none Medication Reconciliation: from medication list. History of Present Illness #1. Surgical Clearance: The patient presents to [facility] for evaluation for preoperative clearance for surgery as requested by Dr. Capellan. Is scheduled to have Rt. Shoulder at [place] later this week. The surgery is low risk. The patient has history of no cardiac or pulmonary problems risk for surgery. #2. History right shoulder pain with labrum tear and biceps tendinosis. Scheduled for surgery later in the week. No no contraindications to surgery. Is otherwise doing well.: #3. Type II Hypercholesterolaemia: Currently taking medication and tolerating well. No interval complaints of any muscle pain or arthralgia. No significant liver changes with medications. Last lipid panel: fair control. Therapy reviewed regarding treatment of cholesterol management and include diet and Rosuvastatin.Medication List Reviewed and Reconciled 10/07/2023Rosuvastatin 10 MG (TABLET - ORAL) One DailyVaccination and Hfnfvazvfzkn0690-74 [employer] Amber NetworksSurgical HistoryRight Elbow Tendonitis, Right Rotator Cuff, Rigth Hip Labrum Repair, Sinus SurgeryPreventative Testing Confirmed by Our Bdoolpk2304/08/2023 ALBUMIN 3.9 G/DL N004/08/2023 PSA 0.75 NG/ML N004/01/2018 COLONOSCOPY (10 YEARS) 04/01/2028Social HistoryDoes not smoke or drinkFamily HistoryMother 58 MVAFather 66 Cholesterol, Depression and some dementiaOne brother with hx of ASD TEST RESULT RANGE UNITSCBC/COMPLETE BLD COUNT W/DIFF Date: 04/08/2023WHITE BLOOD CELLS 5.8 4.2-10.8 X10'3/ULHEMOGLOBIN 14.9 13.2-17.0 G/DLHEMATOCRIT 45.4 39.3-50.0 %PLATELETS 171 150-400 X10'3/ULCOMPREHENSIVE METABOLIC PANEL Date: 04/08/2023SODIUM 142 137-145 MMOL/LPOTASSIUM 3.9 3.5-5.1 MMOL/LBUN 12 8-19 MG/DLCREATININE 0.97 0.66-1.25 MG/DLGFR >60ALKALINE PHOSPHATASE 58 38-126 U/LALANINE AMINOTRANSFERASE 28 0-50 U/LASPARTATE AMINOTRANSFERASE 23 15-46 U/LBILIRUBIN, TOTAL 0.60 0.20-1.30 MG/DLLIPID PANEL Date: 3CHOLESTEROL 140 140-199 MG/DLTRIGLYCERIDES 59 0-150 MG/DLHDL CHOLESTEROL 55 40- MG/DLLDL CHOLESTEROL, CALCULATED 73 0-130 MG/DLPSA, TOTAL Date: 04/08/2023SA, TOTAL 0.75 0.00-4.00 NG/MLT4 FREE Date: 04/08/2023FREE T4 1.12 0.78-2.19 NG/DLTSH Date: 04/08/2023THYROID-STIMULA TING HORMONE 1.100 0.465-4.680 UIU/ML Ami Miranda MD [address], [facility] [address], [place], [address], [facility] [employer] 10/07/2023 11:17:14 4 text/html Patient Name: Aaron Fisher Of Service: Thursday ( 05.11.2024 ): 1975 Age: 49 There has been approximately a 4 lb weight loss since 10/07/2023. This represents approximately a 2.1% change in weight. Weight change attributable to lifestyle changes. Vital Signs:Blood Pressure: Sitting Rt. Arm 388/0Pulse: Sitting 64 /min and RegularRespiratory Rate: 14Height 70 in or 1.8 mWeight 184 lb or 83.5 kgBMI 26.4Temperature: 97.5 F or 36.4 CPulse Oximetry: 98 % at rest on no oxygen Chief Complaint: Addressed in HPI Problems or conditions discussed in the HPI were the only ones reviewed during the encounter.Only social and family history addressed in the HPI were reviewed during this encounter. Attendant(s): NoneConstitutional and Systemic Symptoms:none Medication Reconciliation: from medication list. History of Present Illness #1. In for a well patient check up. Last well patient evaluation was approximately one year. No interval complaints of any major medical problems. No hx of any chest pain, shortness of breath, nausea, vomiting, diarrhea or constitutional symptoms. #2. Type II Hypercholesterolaemia: Currently taking medication and tolerating well. No interval complaints of any muscle pain or arthralgia. No significant liver changes with medications. Last lipid panel: fair control. Therapy reviewed regarding treatment of cholesterol management and include diet and Rosuvastatin. Active Medication ListRosuvastatin 10 MG (TABLET - ORAL) One Daily Vaccination and Krxvjvbeyzup7948-76 [employer] Mmqszii8600-45 Right shoulder surgery for biceps rulact5107-89 Right Elbow [id number] Right Rotator [id number] Rigth Hip Labrum [id number] Sinus Surgery Preventative Prfmvpw1504/08/2023 ALBUMIN 3.9 G/DL N004/08/2023 PSA 0.75 NG/ML N004/01/2018 COLONOSCOPY (9 YEARS) 04/01/2028 Social HistoryDoes not smoke or drink Family HistoryMother 58 MVAFather 65 Cholesterol, Depression and some dementiaOne brother with hx of ASD Ami Miranda MD [address] [facility], [facility] [address], [place], [address], [facility] [employer] 05/11/2024 10:54:59
[2025-01-06 12:14] LABS: Influenza A QL RT-PCR Positive (Negative); Influenza B QL RT-PCR Negative (Negative); RSV RNA, RT-PCR Negative (Negative); SARS-CoV-2 RNA PCR Negative (Negative)
== END 2025-01-06 11:07 | disposition home or self-care (01) ==
LOC: ANHLAB 11:13
PROVIDERS: PCP Internal Medicine; Visit Provider Internal Medicine
DX: R50.9 Fever, unspecified (principal)
CPT/HCPCS: 87637